=== PATIENT | female | born 1985 | race Caucasian/White ===

== ENCOUNTER 2016-06-30 11:45 | Observation (INO) | payer MEDICAID ==
[~2016-06-30] VITALS: Ht 162.6 cm; Wt 79.8 kg
[2016-06-30 11:52] VITALS: BP 143/104
[2016-06-30 12:02] VITALS: BP 123/76
[2016-06-30 12:34] VITALS: BP 134/81
[2016-06-30 13:12] LABS: BASOPHILS % (AUTO) 0 % (0-10); EOSINOPHILS % (AUTO) 0 % (0-10); LYMPHOCYTES # (AUTO) 2.1 X 10^3 (1.0-4.0); LYMPHOCYTES % (AUTO) 18 % (12-44); MEAN CORPUSCULAR HEMOGLOBIN 30 PG (25-34); MEAN CORPUSCULAR HGB CONC 34 G/DL (32-36); MEAN CORPUSCULAR VOLUME 88 FL (80-99); MEAN PLATELET VOLUME 9.7 FL (7.4-10.4); MONOCYTES # (AUTO) 0.6 X 10^3 (0.0-1.0); MONOCYTES % (AUTO) 5 % (0-12); NEUTROPHILS # (AUTO) 9.1 X 10^3 (1.8-7.8); NEUTROPHILS % (AUTO) 77 % (42-75); PLATELET COUNT 254 10^3/uL (130-400); RED BLOOD COUNT 3.88 10^6/uL (4.35-5.85); RED CELL DISTRIBUTION WIDTH 12.8 % (10.0-14.5); WHITE BLOOD COUNT 11.9 10^3/uL (4.3-11.0)
[2016-06-30 13:27] LABS: ALANINE AMINOTRANSFERASE 21 U/L (0-55); ALBUMIN 3.4 G/DL (3.2-4.5); ANION GAP 8 MMOL/L (5-14); ASPARTATE AMINO TRANSFERASE 16 U/L (5-34); BILIRUBIN,TOTAL 0.2 MG/DL (0.1-1.0); BLOOD UREA NITROGEN 6 MG/DL (7-18); BUN/CREATININE RATIO 9; CALCIUM 8.6 MG/DL (8.5-10.1); CARBON DIOXIDE 23 MMOL/L (21-32); CHLORIDE 107 MMOL/L (98-107); CREATININE SERUM 0.67 MG/DL (0.60-1.30); GFR ESTIMATED > 60; GLUCOSE 78 MG/DL (70-105); LACTATE DEHYDROGENASE 136 U/L (125-220); SODIUM 138 MMOL/L (135-145); TOTAL PROTEIN 6.5 G/DL (6.4-8.2); URIC ACID 3.4 MG/DL (2.6-7.2)
[2016-06-30 13:43] VITALS: BP 121/85
--- NOTE | 2016-06-30 14:59 | History & Physical-OB ---
OB - Chief Complaint & HPI Date Date of Admission: Date of Admission: Jun 30, 2016 at 11:50 Chief Complaint/History OB-Reason for Admission/Chief: Obstetrical Complication Hx : 3 Hx Para: 2 Expected Date of Delivery: Oct 23, 2016 Gestational Age in Weeks: 23 Gestational Age in Days: 4 Other reason for admission: 30 y/o @ 23w4d by 10 wk sono presenting from clinic for admission. At clinic today, BPs noted to be 140-160/80-90 on several measurements. Does c/o mild headache and vision changes. No severe RUQ pain or sudden increase in edema. Did not have pre-eclampsia or HTN in last pregnancies; none elevated prior to 20 wga. Does have significant situational stressors at home with a very sick nephew on a ventilator in [place] who she wishes to go visit. Growth today adequate and fluid normal. Denies other complaints, fetus active, no LOF VB CTX. c/b: H/o THC use (neg UDS on last visit) H/o chlamydia this (RODRIGO neg at 14wga) Declined genetic screening. History of Labs O+ Antibody neg RI Hep B neg RPR NR HIV neg Gonorrhea neg, chlamydia pos (neg RODRIGO) Allergies and Home Medications Allergies Coded Allergies: No Known Drug Allergies (Unverified , 06/30/16) OB - History Hx of Present Care: Yes Ultrasounds: Normal mid trimester US Obstetrical Complications: Other (THC use prior to , chlamydia this ) Medical Complications: None Information Induced Hypertension: No Maternal Gestational Diabetes: No Hemorrhage: No Obstetrical History Hx : 3 Hx Para: 2 Hx # Term Pregnancies: 2 Patient Past Medical History see above Social History/Family History Recent Infectious Disease Expo: No Sexually Transmitted Disease: Yes (chlamydia, treated as per above) OB - Admission Exam Physical Exam Vitals: Vital Signs 06/30/16 13:43 Temp 98.0 Pulse 78 Resp 18 B/P 121/85 Pulse Ox 100 O2 Delivery Room Air HEENT: NCAT Heart: Rhythm Normal Lungs: Clear Abdomen: Gravid Extremities: Normal Reflexes: Normal Labs Laboratory Tests Test 06/30/16 13:04 Range/Units Alanine Aminotransferase (ALT/SGPT) 21 0-55 U/L Albumin 3.4 3.2-4.5 G/DL Alkaline Phosphatase 79 40-136 U/L Anion Gap 8 5-14 MMOL/L Aspartate Amino Transf (AST/SGOT) 16 5-34 U/L BUN/Creatinine Ratio 9 Basophils # (Auto) 0.0 0.0-0.1 10^3/uL Basophils (%) (Auto) 0 0-10 % Blood Urea Nitrogen 6 L 7-18 MG/DL Calcium Level 8.6 8.5-10.1 MG/DL Carbon Dioxide Level 23 21-32 MMOL/L Chloride Level 107 98-107 MMOL/L Creatinine 0.67 0.60-1.30 MG/DL Eosinophils # (Auto) 0.0 0.0-0.3 10^3/uL Eosinophils (%) (Auto) 0 0-10 % Estimat Glomerular Filtration Rate > 60 Glucose Level 78 70-105 MG/DL Hematocrit 34 L 35-52 % Hemoglobin 11.8 11.5-16.0 G/DL Lactate Dehydrogenase 136 125-220 U/L Lymphocytes # (Auto) 2.1 1.0-4.0 X 10^3 Lymphocytes (%) (Auto) 18 12-44 % Mean Corpuscular Hemoglobin 30 25-34 PG Mean Corpuscular Hemoglobin Concent 34 32-36 G/DL Mean Corpuscular Volume 88 80-99 FL Mean Platelet Volume 9.7 7.4-10.4 FL Monocytes # (Auto) 0.6 0.0-1.0 X 10^3 Monocytes (%) (Auto) 5 0-12 % Neutrophils # (Auto) 9.1 H 1.8-7.8 X 10^3 Neutrophils (%) (Auto) 77 H 42-75 % Platelet Count 254 130-400 10^3/uL Potassium Level 4.0 3.6-5.0 MMOL/L Red Blood Count 3.88 L 4.35-5.85 10^6/uL Red Cell Distribution Width 12.8 10.0-14.5 % Sodium Level 138 135-145 MMOL/L Total Bilirubin 0.2 0.1-1.0 MG/DL Total Protein 6.5 6.4-8.2 G/DL Uric Acid 3.4 2.6-7.2 MG/DL White Blood Count 11.9 H 4.3-11.0 10^3/uL OB - Assessment/Plan/Diagnosis Plan Other Plan 30 y/o @ 23w4d with new onset hypertension, situational stress vs gest HTN vs pre-eclampsia. x 2 Rh+ RI H/o THC use prior to , has ceased, UDS neg since initial visit H/o chlamydia this , neg RODRIGO Admit to L&D for observation NST q shift Serial BPs 24 hour urine collection, HELLP labs reviewed and negative Will review urine prior to discussing disposition further KALEN LORD MD Jun 30, 2016 14:59
[2016-06-30] MEDS ORDERED: FLU TRIvalent (5 YOA+) 2016-17 (AFLURIA) 0.5 ML IM ONE (15:30)
[2016-06-30 16:46] VITALS: BP 126/80
[2016-06-30 20:15] VITALS: BP 132/84
[2016-07-01] VITALS: BP 128/83
[2016-07-01 04:25] VITALS: BP 116/78
[2016-07-01 08:30] VITALS: BP 127/79
--- NOTE | 2016-07-01 08:33 | Progress Note-Standard ---
Standard Progress Note Progress Notes/Assess & Plan Progress/Assessment & Plan BP much better in bed. Labs wnl. Will await results of the 24 hour urine and then discharge home with instructions. Complains of right leg pain. On further questioning. States it starts in back and radiates down posterior leg. No numbness. Will give tylenol and heating pad. May need PT as outpatient VS - Last 72 Hours, by Label 06/30/16 06/30/16 06/30/16 06/30/16 11:52 12:02 12:34 13:43 Temp 97.8 98.0 Pulse 93 85 86 78 Resp B/P 143/104 123/76 134/81 121/85 Pulse Ox 100 O2 Delivery Room Air 06/30/16 06/30/16 06/30/16 07/01/16 13:43 16:46 20:15 00:00 Temp 98.0 98.6 98.6 Pulse 78 78 75 83 Resp 18 B/P 121/85 126/80 132/84 128/83 Pulse Ox 100 97 O2 Delivery Room Air Room Air Room Air Room Air 07/01/16 04:25 Temp 98.3 Pulse 94 Resp 18 B/P 116/78 O2 Delivery Room Air Laboratory Tests Test 06/30/16 13:04 Range/Units Alanine Aminotransferase (ALT/SGPT) 21 0-55 U/L Albumin 3.4 3.2-4.5 G/DL Alkaline Phosphatase 79 40-136 U/L Anion Gap 8 5-14 MMOL/L Aspartate Amino Transf (AST/SGOT) 16 5-34 U/L BUN/Creatinine Ratio 9 Basophils # (Auto) 0.0 0.0-0.1 10^3/uL Basophils (%) (Auto) 0 0-10 % Blood Urea Nitrogen 6 L 7-18 MG/DL Calcium Level 8.6 8.5-10.1 MG/DL Carbon Dioxide Level 23 21-32 MMOL/L Chloride Level 107 98-107 MMOL/L Creatinine 0.67 0.60-1.30 MG/DL Eosinophils # (Auto) 0.0 0.0-0.3 10^3/uL Eosinophils (%) (Auto) 0 0-10 % Estimat Glomerular Filtration Rate > 60 Glucose Level 78 70-105 MG/DL Hematocrit 34 L 35-52 % Hemoglobin 11.8 11.5-16.0 G/DL Lactate Dehydrogenase 136 125-220 U/L Lymphocytes # (Auto) 2.1 1.0-4.0 X 10^3 Lymphocytes (%) (Auto) 18 12-44 % Mean Corpuscular Hemoglobin 30 25-34 PG Mean Corpuscular Hemoglobin Concent 34 32-36 G/DL Mean Corpuscular Volume 88 80-99 FL Mean Platelet Volume 9.7 7.4-10.4 FL Monocytes # (Auto) 0.6 0.0-1.0 X 10^3 Monocytes (%) (Auto) 5 0-12 % Neutrophils # (Auto) 9.1 H 1.8-7.8 X 10^3 Neutrophils (%) (Auto) 77 H 42-75 % Platelet Count 254 130-400 10^3/uL Potassium Level 4.0 3.6-5.0 MMOL/L Red Blood Count 3.88 L 4.35-5.85 10^6/uL Red Cell Distribution Width 12.8 10.0-14.5 % Sodium Level 138 135-145 MMOL/L Total Bilirubin 0.2 0.1-1.0 MG/DL Total Protein 6.5 6.4-8.2 G/DL Uric Acid 3.4 2.6-7.2 MG/DL White Blood Count 11.9 H 4.3-11.0 10^3/uL assessment: 1. elevated blood pressures with new onset proteinuria at 23 weeks. 2. right sciatic pain. SRINATH VARGAS DO Jul 01, 2016 08:33
[2016-07-01] MEDS ORDERED: ACETAMINOPHEN 500 MG TAB (TYLENOL) PO PRN (09:00)
[2016-07-01 11:55] VITALS: BP 127/80
[2016-07-01 13:06] VITALS: BP 127/80
[2016-07-01] MEDS ORDERED: CYCLOBENZAPRINE 10 MG (FLEXERIL) TAB PO PRN (13:15)
[2016-07-01] MEDS ORDERED: CYCL10TA9 PO (13:22)
--- NOTE | 2016-07-01 13:24 | Discharge Inst-Women's Service ---
Discharge Inst-Women's Serv Depart Medication/Instructions New, Converted or Re-Newed RX: RX on Chart Instructions follow up with Dr. Lerner next week. Call for SBD > 160 and DBP > 110 Final Diagnosis elevated blood pressure , second trimester right sciatic nerve pain headache, history of migraine headaches. Consults/Follow Up Additional Follow Up: Yes (1 weeks with Eduarda) Activity Activity: Activity as Tolerated Driving Instructions: You May Drive NO SMOKING: NO SMOKING Nothing Inside Vagina: No Douching, No [place], No Tampons Diet Discharge Diet: No Restrictions Symptoms to Report to : Eyesight Changes, Pain Increased, Fever Over 101 Degrees F, Cramps in Feet or Legs, Vaginal Discharge Foul For Any Problems or Questions: Contact Your Physician SRINATH VARGAS DO Jul 01, 2016 13:24
[2016-07-01] MEDS ORDERED: CYCLOBENZAPRINE 10 MG (FLEXERIL) TAB PO SCH (13:30)
--- NOTE | 2016-07-01 14:47 | Progress Note-Standard ---
Standard Progress Note Progress Notes/Assess & Plan Progress/Assessment & Plan Vital Signs 07/01/16 11:55 Temp 98.0 Pulse 77 Resp 18 B/P 127/80 Pulse Ox 99 O2 Delivery Room Air Will discharge home with close follow up. Follow up with Dr. Lerner next week Laboratory Tests Test 07/01/16 13:41 Range/Units Urine Total Protein 24 Hour 0-149 MG/24H Urine Total Protein mg/dL < 6 L 6-12 MG/DL Urine Total Volume 2600 ML SRINATH VARGAS DO Jul 01, 2016 14:46
[2016-07-01] MEDS ORDERED: PREN1TAB86 PO (15:13)
[2016-07-01 15:40] VITALS: BP 127/80
== END 2016-07-01 14:44 | disposition home or self-care (01) ==
LOC: LDRP 11:45 → UNDOADMOB 11:50 → LDRP 11:50 → UNDODISOB 07-01 15:40
PROVIDERS: ADMIT Obstetrics & Gynecology; ATTEND Obstetrics & Gynecology
DX: O13.2 Gestational [pregnancy-induced] hypertension without significant proteinuria, second trimester (principal); O26.892 Other specified pregnancy related conditions, second trimester; M54.31 Sciatica, right side; R51 Headache; Z3A.23 23 weeks gestation of pregnancy
CPT/HCPCS: 36415; 80053; 83615; 84156; 84550; 85025; 99211; G0378

== ENCOUNTER 2016-08-04 14:12 | Outpatient (CLI) | payer MEDICAID ==
[~2016-08-04] VITALS: Ht 162.6 cm; Wt 82.1 kg
[2016-08-04 14:10] VITALS: BP 134/78
[~2016-08-04 14:12] MED LIST: CYCL10TA9 PO; PREN1TAB86 PO
[2016-08-04 15:30] VITALS: BP 134/78
[2016-08-04] MEDS ORDERED: FLU TRIvalent (5 YOA+) 2016-17 (AFLURIA) 0.5 ML IM ONE (15:45)
[2016-08-04 15:50] VITALS: BP 125/72
--- NOTE | 2016-08-05 14:07 | Physician Query-Final Dx ---
REAGAN SÁNCHEZ 08/05/16 1407: Clinic Account Progress/Dx Physician Query: Please give diagnosis Date of Service Aug 04, 2016 at 14:12 JACKIE DANIELS MD 08/05/16 1650: Clinic Account Progress/Dx DIAGNOSIS: Diagnosis fall / trauma during REAGAN SÁNCHEZ Aug 05, 2016 14:07 JACKIE DANIELS MD Aug 05, 2016 16:50
== END 2016-08-04 15:55 | disposition home or self-care (01) ==
LOC: DELPENDDIS → LDRP 14:12 → WSo 14:12
PROVIDERS: ATTEND Obstetrics & Gynecology
DX: O26.93 Pregnancy related conditions, unspecified, third trimester (principal); R10.32 Left lower quadrant pain; W19.XXXA Unspecified fall, initial encounter; Y92.018 Other place in single-family (private) house as the place of occurrence of the external cause; Y99.8 Other external cause status; Z3A.28 28 weeks gestation of pregnancy
CPT/HCPCS: 99213

== ENCOUNTER 2016-10-28 20:00 | Inpatient (IN) | payer MEDICAID ==
[~2016-10-28] VITALS: Ht 162.6 cm; Wt 85.7 kg
[2016-10-28] MEDS: D5 LR IV SOLUTION 1,000 ML IV SCH (20:10)
[2016-10-28] MEDS: LACTATED RINGERS 1,000 ML IV SCH (20:15)
[2016-10-28 20:33] VITALS: BP 140/88
[2016-10-28] MEDS ORDERED: LACTATED RINGERS 1,000 ML IV ONE (20:34)
[2016-10-28] MEDS ORDERED: MISOPROSTOL 100 MCG (CYTOTEC) TAB PV PRN (21:30)
[2016-10-28] MEDS ORDERED: MINERAL OIL CONCENTRATE 99.9% 15 ML UDC TOP PRN (21:30)
[2016-10-28 21:40] VITALS: BP 142/97
[2016-10-28 21:42] LABS: BASOPHILS % (AUTO) 0 % (0-10); EOSINOPHILS % (AUTO) 0 % (0-10); LYMPHOCYTES # (AUTO) 2.1 X 10^3 (1.0-4.0); LYMPHOCYTES % (AUTO) 15 % (12-44); MEAN CORPUSCULAR HEMOGLOBIN 27 PG (25-34); MEAN CORPUSCULAR HGB CONC 32 G/DL (32-36); MEAN CORPUSCULAR VOLUME 84 FL (80-99); MEAN PLATELET VOLUME 10.7 FL (7.4-10.4); MONOCYTES % (AUTO) 7 % (0-12); NEUTROPHILS # (AUTO) 10.5 X 10^3 (1.8-7.8); NEUTROPHILS % (AUTO) 77 % (42-75); PLATELET COUNT 209 10^3/uL (130-400); RED BLOOD COUNT 4.02 10^6/uL (4.35-5.85); WHITE BLOOD COUNT 13.7 10^3/uL (4.3-11.0)
[2016-10-28 21:44] LABS: BILIRUBIN,URINE NEGATIVE (NEGATIVE); KETONES,URINE NEGATIVE (NEGATIVE); LEUKOCYTE ESTERASE ,URINE 1+ (NEGATIVE); NITRITE,URINE NEGATIVE (NEGATIVE); PH,URINE 6.5 (5-9); PROTEIN,URINE 1+ (NEGATIVE); UROBILINOGEN,URINE 1 MG/DL (NORMAL)
[2016-10-28 21:58] LABS: WBC,URINE 0-2 /HPF
[2016-10-28 22:10] VITALS: BP 131/84
[2016-10-28] MEDS: CATHETER FLUSH 10 ML SYR IV SCH (22:27)
[2016-10-28] MEDS: fentaNYL INJECTION 100 MCG/2 ML AMP IVP PRN (22:27)
[2016-10-28 23:06] VITALS: BP 138/103
[2016-10-29] VITALS (44 sets, daily range): BP systolic 108–160; BP diastolic 61–111
[2016-10-29] MEDS: fentaNYL INJECTION 100 MCG/2 ML AMP IVP PRN ×5 (01:19→05:18)
[2016-10-29 01:51] LABS: ALANINE AMINOTRANSFERASE 13 U/L (0-55); ALBUMIN 3.2 GM/DL (3.2-4.5); ANION GAP 11 MMOL/L (5-14); ASPARTATE AMINO TRANSFERASE 18 U/L (5-34); BILIRUBIN,TOTAL 0.4 MG/DL (0.1-1.0); BLOOD UREA NITROGEN 8 MG/DL (7-18); BUN/CREATININE RATIO 10 (0-20); CARBON DIOXIDE 20 MMOL/L (21-32); CHLORIDE 105 MMOL/L (98-107); CREATININE SERUM 0.79 MG/DL (0.60-1.30); GFR ESTIMATED > 60; GLUCOSE 101 MG/DL (70-105); HEMOLYSIS 6 (-100-29); ICTERUS 0.6 (-100-1.9); LACTATE DEHYDROGENASE 204 U/L (125-220); LIPEMIA 20 (-100-49); POTASSIUM 3.8 MMOL/L (3.6-5.0); SODIUM 136 MMOL/L (135-145); TOTAL PROTEIN 6.2 GM/DL (6.4-8.2); URIC ACID 4.3 MG/DL (2.6-7.2)
[2016-10-29] MEDS ORDERED: fentaNYL INJECTION 100 MCG/2 ML AMP ONE ×3 (02:14→07:19)
[2016-10-29] MEDS: D5 LR IV SOLUTION 1,000 ML IV SCH ×2 (05:23→11:16)
[2016-10-29] MEDS: CATHETER FLUSH 10 ML SYR IV SCH ×3 (06:13→22:27)
[2016-10-29] MEDS ORDERED: fentaNYL INJECTION 100 MCG/2 ML AMP IVP PRN (06:30)
[2016-10-29] MEDS: LACTATED RINGERS 1,000 ML IV SCH (06:51)
[2016-10-29] MEDS ORDERED: SUFENTA 0.6MCG/ML BUPIVA 0.125 100 ML ONE (06:52)
[2016-10-29] MEDS ORDERED: LIDOCAINE PF 2% 5 ML (XYLOCAINE) VIAL ONE (07:19)
[2016-10-29] MEDS ORDERED: BUPIVACAINE 0.25% 30 ML (SENSORCAINE) VIAL ONE (07:19)
[2016-10-29] MEDS ORDERED: LACTATED RINGERS 1,000 ML IV ONE ×2 (07:50)
[2016-10-29] MEDS ORDERED: ONDANSETRON 4 MG/2 ML (SDV) Z0FRAN IV PRN (08:00)
[2016-10-29] MEDS ORDERED: BUPIVACAINE 0.25% 30 ML (SENSORCAINE) VIAL INJ ONE (08:00)
[2016-10-29] MEDS ORDERED: EPIDURAL (SUFENTA 0.6MCG/ML BUPIVA 0.125%) 100 ML BAG EPI PRN (08:00)
[2016-10-29] MEDS ORDERED: fentaNYL INJECTION 100 MCG/2 ML AMP INJ ONE (08:00)
[2016-10-29] MEDS ORDERED: LIDOCAINE PF 2% 10 ML (XYLOCAINE) AMP INJ ONE (08:00)
[2016-10-29] MEDS ORDERED: NALOXONE 0.4 MG/ML 1 ML (NARCAN) VIAL IV PRN (08:00)
--- NOTE | 2016-10-29 08:31 | History & Physical-OB ---
OB - Chief Complaint & HPI Date/Time Date of Admission: Date of Admission: Oct 28, 2016 at 20:00 Time Seen by Provider: 07:55 Chief Complaint/History OB-Reason for Admission/Chief: Induction of Labor Hx : 3 Hx Para: 2 Expected Date of Delivery: Oct 23, 2016 Gestational Age in Weeks: 40 Gestational Age in Days: 6 Indication for induction: post dates Other reason for admission: 31 y/o @ 40w6d here for elective IOL (post-dates but not post-term) Upon my arrival, had just gotten epidural, SROM this AM with clear fluid Fetus active, CTX q2-3 mins No si/sx pre-eclampsia c/b: H/o THC use (neg UDS throughout other than intake) H/o chlamydia this (neg RODRIGO) Declined genetic screening HTN in second trimester (one episode r/t of family member, no pre- eclampsia, no repeat elevated BPs) History of Labs O+ Antibody neg RI Hep B neg Hep C neg RPR NR HIV Neg Gonorrhea neg Chlamydia pos first trimester, neg RODRIGO and neg rescreen in third trimester GBS Neg Allergies and Home Medications Allergies Coded Allergies: No Known Drug Allergies (Unverified , 06/30/16) Home Medications Vit W-Ca,Fe,FA(<1 mg) 1 Each Tablet, 1 EACH PO DAILY, (Reported) OB - History Hx of Present Care: Yes Ultrasounds: Normal mid trimester US Obstetrical Complications: None Medical Complications: None Information Induced Hypertension: No Maternal Gestational Diabetes: No Hemorrhage: No Obstetrical History Hx : 3 Hx Para: 2 Patient Past Medical History see above Social History/Family History Recent Infectious Disease Expo: No Sexually Transmitted Disease: Yes (chlamydia, treated as per above) Alcohol Use: Denies Use Recreational Drug Use: Yes Immunizations Tetanus Booster (TDap): Less than 5yrs Rubella: immune RPR/VDRL: Negative GBS Status: Negative HBsAG: Negative OB - Admission Exam Physical Exam Time Seen by Provider: 07:55 Vitals: Vital Signs 10/28/16 10/29/16 10/29/16 21:40 05:32 06:23 Temp 98.8 Pulse 61 Resp 18 B/P (MAP) 136/85 O2 Delivery Room Air HEENT: NCAT Abdomen: Gravid Cervical Dilatation: 4cm Effacement: 75% Station: -1 Membranes: Ruptured Amniotic Fluid: Clear Heart Rate: 130's Accelerations: Accelerations Present Decelerations: Variable Decelerations (with occ ctx, anne marie > 100, lasting < 30 seconds) Short Term Variability: Present Transmission Technician Variability: Average (6-25) Contractions on Admission: < 5 Minutes Apart Earl Scoring Tool (Modified) Dilation (cm): 3-4cm (2) Effacement (%): 80-100% (3) Descent/Station: -1,0 (2) Cervix Consistency: Soft (2) Cervix Position: Anterior (2) Add 1 point for: Each previous vaginal delivery (1) Subtract 1 point for: Postdate (-1) Earl Score: 12 Labs Laboratory Tests Test 10/28/16 20:05 10/28/16 20:45 Range/Units Urine Color YELLOW Urine Clarity CLEAR Urine pH 6.5 5-9 Urine Specific [place] 1.020 1.016-1.022 Urine Protein 1+ H NEGATIVE Urine Glucose (UA) NEGATIVE NEGATIVE Urine Ketones NEGATIVE NEGATIVE Urine Nitrite NEGATIVE NEGATIVE Urine Bilirubin NEGATIVE NEGATIVE Urine Urobilinogen 1 NORMAL MG/DL Urine Leukocyte Esterase 1+ H NEGATIVE Urine RBC (Auto) NEGATIVE NEGATIVE Urine RBC NONE /HPF Urine WBC 0-2 /HPF Urine Squamous Epithelial Cells 5-10 /HPF Urine Crystals NONE /LPF Urine Bacteria TRACE /HPF Urine Casts NONE /LPF Urine Mucus NEGATIVE /LPF Urine Culture Indicated NO White Blood Count 13.7 H 4.3-11.0 10^3/uL Red Blood Count 4.02 L 4.35-5.85 10^6/uL Hemoglobin 10.9 L 11.5-16.0 G/DL Hematocrit 34 L 35-52 % Mean Corpuscular Volume 84 80-99 FL Mean Corpuscular Hemoglobin 27 25-34 PG Mean Corpuscular Hemoglobin Concent 32 32-36 G/DL Red Cell Distribution Width 13.0 10.0-14.5 % Platelet Count 209 130-400 10^3/uL Mean Platelet Volume 10.7 H 7.4-10.4 FL Neutrophils (%) (Auto) 77 H 42-75 % Lymphocytes (%) (Auto) 15 12-44 % Monocytes (%) (Auto) 7 0-12 % Eosinophils (%) (Auto) 0 0-10 % Basophils (%) (Auto) 0 0-10 % Neutrophils # (Auto) 10.5 H 1.8-7.8 X 10^3 Lymphocytes # (Auto) 2.1 1.0-4.0 X 10^3 Monocytes # (Auto) 1.0 0.0-1.0 X 10^3 Eosinophils # (Auto) 0.0 0.0-0.3 10^3/uL Basophils # (Auto) 0.0 0.0-0.1 10^3/uL Sodium Level 136 135-145 MMOL/L Potassium Level 3.8 3.6-5.0 MMOL/L Chloride Level 105 98-107 MMOL/L Carbon Dioxide Level 20 L 21-32 MMOL/L Anion Gap 11 5-14 MMOL/L Blood Urea Nitrogen 8 7-18 MG/DL Creatinine 0.79 0.60-1.30 MG/DL Estimat Glomerular Filtration Rate > 60 BUN/Creatinine Ratio 10 0-20 Glucose Level 101 70-105 MG/DL Uric Acid 4.3 2.6-7.2 MG/DL Calcium Level 9.0 8.5-10.1 MG/DL Total Bilirubin 0.4 0.1-1.0 MG/DL Aspartate Amino Transf (AST/SGOT) 18 5-34 U/L Alanine Aminotransferase (ALT/SGPT) 13 0-55 U/L Alkaline Phosphatase 150 H 40-136 U/L Lactate Dehydrogenase 204 125-220 U/L Total Protein 6.2 L 6.4-8.2 GM/DL Albumin 3.2 3.2-4.5 GM/DL OB - Assessment/Plan/Diagnosis Assessment Assessment: induction of labor Plan Other Plan 31 y/o @ 40w6d with elective IOL GBS neg Rh+ RI H/o chlamydia this with neg RODRIGO and neg rescreen in third trimester H/o THC use with +UDS on OB intake but negative since H/o HTN in second trimester, resolved, no dx of gest HTN Elevated BPs in labor HELLP labs unremarkable but 1+ protein - will dx with mild pre-eclampsia. No mag sulfate unless treatable BPs or other severe si/sx. Will need one week BP check for f/u however. S/p cytotec x 1 dose overnight, no additional augmentation since - will continue to observe labor process and start pitocin if necessary ASVD KALEN LORD MD Oct 29, 2016 08:31
[2016-10-29] MEDS ORDERED: OXYTOCIN/NORMAL SALINE 500 ML IV ONE (10:01)
[2016-10-29] MEDS: OXYTOCIN/NORMAL SALINE 500 ML IV SCH ×2 (12:30→13:18)
[2016-10-29] MEDS ORDERED: IBUP-1773 PO (12:40)
[2016-10-29] MEDS ORDERED: DOCU-143 PO (12:40)
[2016-10-29] MEDS ORDERED: FERR-84 PO (12:40)
--- NOTE | 2016-10-29 12:41 | Discharge Inst-Women's Service ---
Discharge Inst-Women's Serv Depart Medication/Instructions New, Converted or Re-Newed RX: RX on Chart Final Diagnosis TIUP, Consults/Follow Up Additional Follow Up: Yes Orders/Referrals One week for nurse visit only with BP check [address] Lerner Activity Activity: Activity as Tolerated Driving Instructions: You May Drive NO SMOKING: NO SMOKING Nothing Inside Vagina: No Douching, No [place], No Tampons Diet Discharge Diet: No Restrictions Symptoms to Report to : Bleeding Excessive, Pain Increased, Fever Over 101 Degrees F, Pain/Pressure in Chest, Vaginal Bleeding Increase, Dizziness/Fainting , Nausea/Vomiting, Shortness of Breath For Any Problems or Questions: Contact Your Physician, Go to Emergency Room KALEN LERNER MD Oct 29, 2016 12:41
--- NOTE | 2016-10-29 12:45 | OB Labor & Delivery Record ---
Vag Delivery Note Vag Delivery Note Date of Delivery: 10/29/16 Preoperative Diagnosis: Tracy Lemus is a 31 y/o @ 40w6d with IOL for post-dates , GBS neg Postoperative Diagnosis: Same Surgeon: Kalen Lernre MD Anesthesia: Epidural Delivery Type: Spontaneous vaginal delivery Findings: Viable male , apgars 8/9, weight 8lb3oz Lacerations: none Intact placenta with 3 vessel cord. No nuchal cord, body cord or shoulder dystocia Estimated Blood Loss: 300 ml Complications: None Condition: Stable Description of Procedure: The patient is a 31 y/o @ 40w6d who presented for scheduled IOL. She was admitted and informed consent was obtained. Her labor course was remarkable for cytotec for IOL with SROM of clear fluid and epidural for analgesia. Without further augmentation, she progressed to complete dilatation and began to push. She was then set up for delivery. The 's head was delivered atraumatically in the occiput anterior position. The shoulders and remainder of the 's body were then delivered without difficulty. Upon delivery, the head was held below the level of the perineum and the mouth and nares were bulb suctioned. The cord was doubly clamped and cut after a pause of 30-60 seconds after the infant was placed on his mother's chest. An intact placenta with 3- vessel cord delivered via Shani and there was found to be minimal bleeding. Vigorous fundal massage was performed and the fundus was found to be firm. IV oxytocin was given. Examination of the vagina and perineum revealed no lacerations. Sponge, instrument and needle counts were correct. Mom and baby were both in stable condition in the labor suite. Vitals - Labs Vital Signs - I&O Vital Signs Date Time Temp Pulse Resp B/P (MAP) Pulse Ox O2 Delivery O2 Flow Rate FiO2 10/29/16 11:20 81 18 146/85 Room Air 10/29/16 11:05 89 18 128/78 Room Air 10/29/16 10:50 82 18 133/84 Room Air 10/29/16 10:35 83 18 127/77 Room Air 10/29/16 10:20 69 18 139/80 Room Air 10/29/16 10:05 73 18 128/78 Room Air 10/29/16 09:50 72 18 132/74 Room Air 10/29/16 09:45 Room Air 10/29/16 09:35 98.6 10/29/16 09:30 Non Rebreather 15.00 10/29/16 09:20 71 18 118/72 Non Rebreather 15.00 10/29/16 09:15 Non Rebreather 15.00 10/29/16 09:00 64 18 110/61 Room Air 10/29/16 08:50 82 122/78 10/29/16 08:45 99 18 124/80 96 Room Air 10/29/16 08:40 72 116/75 96 Room Air 10/29/16 08:35 65 121/75 96 Room Air 10/29/16 08:30 94 18 108/71 96 Room Air 10/29/16 08:25 69 118/74 95 Room Air 10/29/16 08:15 112 18 130/73 98 Room Air 10/29/16 08:12 65 134/77 Room Air 10/29/16 08:10 62 133/73 91 Room Air 10/29/16 08:05 98.7 10/29/16 08:05 78 145/89 97 Room Air 10/29/16 08:02 65 123/81 88 Room Air 10/29/16 08:00 63 18 Room Air 10/29/16 07:58 62 135/81 100 Room Air 10/29/16 07:55 75 121/61 100 Room Air 10/29/16 07:48 62 140/96 91 Room Air 10/29/16 07:45 62 18 130/89 98 Room Air 10/29/16 07:40 67 143/90 92 Room Air 10/29/16 07:35 92 140/100 98 Room Air 10/29/16 07:30 76 18 146/111 98 Room Air 10/29/16 06:23 61 18 136/85 10/29/16 05:32 98.8 73 18 127/87 10/29/16 03:20 77 18 131/76 10/29/16 02:10 69 18 140/91 10/29/16 01:20 98.7 82 18 160/90 10/29/16 00:39 69 18 122/75 10/29/16 00:12 98.2 71 18 136/96 10/28/16 23:06 97.9 69 18 138/103 6/20/17 22:10 78 18 131/84 10/28/16 21:40 98.3 85 20 142/97 Room Air 10/28/16 20:33 99.5 106 18 140/88 Room Air I & O 10/29/16 07:00 Intake Total 3000 ml Balance 3000 ml Labs Laboratory Tests 10/28/16 20:05: Urine Color YELLOW, Urine Clarity CLEAR, Urine pH 6.5, Urine Specific [place] 1.020, Urine Protein 1+H, Urine Glucose (UA) NEGATIVE, Urine Ketones NEGATIVE, Urine Nitrite NEGATIVE, Urine Bilirubin NEGATIVE, Urine Urobilinogen 1, Urine Leukocyte Esterase 1+H, Urine RBC (Auto) NEGATIVE, Urine RBC NONE, Urine WBC 0-2 , Urine Squamous Epithelial Cells 5-10, Urine Crystals NONE, Urine Bacteria TRACE, Urine Casts NONE, Urine Mucus NEGATIVE, Urine Culture Indicated NO 10/28/16 20:45: White Blood Count 13.7H, Red Blood Count 4.02L, Hemoglobin 10.9L, Hematocrit 34L , Mean Corpuscular Volume 84, Mean Corpuscular Hemoglobin 27, Mean Corpuscular Hemoglobin Concent 32, Red Cell Distribution Width 13.0, Platelet Count 209, Mean Platelet Volume 10.7H, Neutrophils (%) (Auto) 77H, Lymphocytes (%) (Auto) 15, Monocytes (%) (Auto) 7, Eosinophils (%) (Auto) 0, Basophils (%) (Auto) 0, Neutrophils # (Auto) 10.5H, Lymphocytes # (Auto) 2.1, Monocytes # (Auto) 1.0, Eosinophils # (Auto) 0.0, Basophils # (Auto) 0.0, Sodium Level 136, Potassium Level 3.8, Chloride Level 105, Carbon Dioxide Level 20L, Anion Gap 11, Blood Urea Nitrogen 8, Creatinine 0.79, Estimat Glomerular Filtration Rate > 60, BUN/ Creatinine Ratio 10, Glucose Level 101, Uric Acid 4.3, Calcium Level 9.0, Total Bilirubin 0.4, Aspartate Amino Transf (AST/SGOT) 18, Alanine Aminotransferase ( ALT/SGPT) 13, Alkaline Phosphatase 150H, Lactate Dehydrogenase 204, Total Protein 6.2L, Albumin 3.2 KALEN LERNER MD Oct 29, 2016 12:45
[2016-10-29] MEDS ORDERED: IBUPROFEN 600 MG (MOTRIN) TAB PO ONE (13:04)
[2016-10-29] MEDS: IBUPROFEN 600 MG (MOTRIN) TAB PO SCH ×2 (13:14→18:20)
[2016-10-29] MEDS ORDERED: WITCH HAZEL(TUCKS) 40 EA JAR TOP PRN (13:15)
[2016-10-29] MEDS ORDERED: BENZOCAINE/MENTHOL (DERMOPLAST) 56 ML CAN TP PRN (13:15)
[2016-10-29] MEDS ORDERED: BUTORPHANOL INJ 2 MG/ML (STADOL) VIAL IV PRN (14:45)
[2016-10-29] MEDS: FERROUS SULF 325 MG (IRON) TAB PO SCH (18:20)
[2016-10-29] MEDS: DOCUSATE SODIUM 100 MG (COLACE) CAP PO SCH (20:13)
[2016-10-29] MEDS: HYDROcodone/APAP 5 MG/325 MG (LORTAB) TAB PO PRN (20:14)
[2016-10-30] MEDS: IBUPROFEN 600 MG (MOTRIN) TAB PO SCH ×4 (00:03→18:18)
[2016-10-30 00:10] VITALS: BP 120/78
[2016-10-30 04:04] VITALS: BP 129/85
[2016-10-30] MEDS: CATHETER FLUSH 10 ML SYR IV SCH (06:35)
[2016-10-30 07:26] LABS: BASOPHILS % (AUTO) 0 % (0-10); EOSINOPHILS # (AUTO) 0.1 10^3/uL (0.0-0.3); EOSINOPHILS % (AUTO) 1 % (0-10); LYMPHOCYTES # (AUTO) 2.7 X 10^3 (1.0-4.0); LYMPHOCYTES % (AUTO) 19 % (12-44); MEAN CORPUSCULAR HEMOGLOBIN 27 PG (25-34); MEAN CORPUSCULAR HGB CONC 31 G/DL (32-36); MEAN CORPUSCULAR VOLUME 85 FL (80-99); MEAN PLATELET VOLUME 10.5 FL (7.4-10.4); MONOCYTES # (AUTO) 0.7 X 10^3 (0.0-1.0); MONOCYTES % (AUTO) 5 % (0-12); NEUTROPHILS # (AUTO) 10.8 X 10^3 (1.8-7.8); NEUTROPHILS % (AUTO) 76 % (42-75); PLATELET COUNT 199 10^3/uL (130-400); RED BLOOD COUNT 3.94 10^6/uL (4.35-5.85); WHITE BLOOD COUNT 14.3 10^3/uL (4.3-11.0)
--- NOTE | 2016-10-30 07:47 | Progress Note-Standard ---
Standard Progress Note Progress Notes/Assess & Plan Date Seen by Provider: Oct 31, 2016 Time Seen by Provider: 07:30 Progress/Assessment & Plan Patient doing well this morning having severe cramps, improved with lortab. Ambulating and voiding freely. Vital Sign - Last 24 Hours 10/29/16 10/29/16 10/29/16 10/29/16 07:48 07:55 07:58 08:00 Pulse 62 75 62 63 Resp 18 B/P (MAP) 140/96 121/61 135/81 Pulse Ox 91 100 100 O2 Delivery Room Air Room Air Room Air Room Air 10/29/16 10/29/16 10/29/16 10/29/16 08:02 08:05 08:05 08:10 Temp 98.7 Pulse 65 78 62 B/P (MAP) 123/81 145/89 133/73 Pulse Ox 88 97 91 O2 Delivery Room Air Room Air Room Air 10/29/16 10/29/16 10/29/16 10/29/16 08:12 08:15 08:25 08:30 Pulse 65 112 69 94 Resp 18 18 B/P (MAP) 134/77 130/73 118/74 108/71 Pulse Ox 98 95 96 O2 Delivery Room Air Room Air Room Air Room Air 10/29/16 10/29/16 10/29/16 10/29/16 08:35 08:40 08:45 08:50 Pulse 65 72 99 82 Resp 18 B/P (MAP) 121/75 116/75 124/80 122/78 Pulse Ox 96 96 96 O2 Delivery Room Air Room Air Room Air 10/29/16 10/29/16 10/29/16 10/29/16 09:00 09:15 09:20 09:30 Pulse 64 71 Resp 18 18 B/P (MAP) 110/61 118/72 O2 Delivery Room Air Non Rebreather Non Rebreather Non Rebreather O2 Flow Rate 15.00 15.00 15.00 10/29/16 10/29/16 10/29/16 10/29/16 09:35 09:45 09:50 10:05 Temp 98.6 Pulse 72 73 Resp 18 18 B/P (MAP) 132/74 128/78 O2 Delivery Room Air Room Air Room Air 10/29/16 10/29/16 10/29/16 10/29/16 10:20 10:35 10:50 11:05 Pulse 69 83 82 89 Resp 18 18 18 18 B/P (MAP) 139/80 127/77 133/84 128/78 O2 Delivery Room Air Room Air Room Air Room Air 10/29/16 10/29/16 10/29/16 10/29/16 11:20 11:35 11:50 12:38 Temp 99.3 100.4 Pulse 81 85 74 105 Resp 18 18 18 18 B/P (MAP) 146/85 144/92 135/86 132/69 O2 Delivery Room Air Room Air Room Air Room Air 10/29/16 10/29/16 10/29/16 10/29/16 12:51 13:04 13:19 13:35 Temp 99.4 99.8 Pulse 83 84 74 74 Resp 18 18 18 18 B/P (MAP) 138/88 141/83 120/73 133/78 O2 Delivery Room Air Room Air Room Air Room Air 10/29/16 10/29/16 10/29/16 10/30/16 13:50 16:32 20:00 00:10 Temp 99.7 98.7 98.2 97.8 Pulse 61 63 86 69 Resp 18 18 17 18 B/P (MAP) 129/83 119/82 130/87 120/78 Pulse Ox 100 95 97 O2 Delivery Room Air Room Air Room Air Room Air 10/30/16 04:04 Temp 97.6 Pulse 81 Resp 19 B/P (MAP) 129/85 Pulse Ox 95 O2 Delivery Room Air Intake and Output 10/29/16 10/29/16 10/30/16 15:00 23:00 07:00 Intake Total 3000 ml Balance 3000 ml Laboratory Tests Test 10/30/16 06:44 Range/Units White Blood Count 14.3 H 4.3-11.0 10^3/uL Red Blood Count 3.94 L 4.35-5.85 10^6/uL Hemoglobin 10.5 L 11.5-16.0 G/DL Hematocrit 34 L 35-52 % Mean Corpuscular Volume 85 80-99 FL Mean Corpuscular Hemoglobin 27 25-34 PG Mean Corpuscular Hemoglobin Concent 31 L 32-36 G/DL Red Cell Distribution Width 13.0 10.0-14.5 % Platelet Count 199 130-400 10^3/uL Mean Platelet Volume 10.5 H 7.4-10.4 FL Neutrophils (%) (Auto) 76 H 42-75 % Lymphocytes (%) (Auto) 19 12-44 % Monocytes (%) (Auto) 5 0-12 % Eosinophils (%) (Auto) 1 0-10 % Basophils (%) (Auto) 0 0-10 % Neutrophils # (Auto) 10.8 H 1.8-7.8 X 10^3 Lymphocytes # (Auto) 2.7 1.0-4.0 X 10^3 Monocytes # (Auto) 0.7 0.0-1.0 X 10^3 Eosinophils # (Auto) 0.1 0.0-0.3 10^3/uL Basophils # (Auto) 0.0 0.0-0.1 10^3/uL Uterine fundus firm and palpated below umbilius Diagnosis: PPD 1 NVD Mild PreE - BP stable Acute blood loss anemia superimposed on anemia of P: Continue routine PP care Anticipate dc later today or tomorrow morning pending BP control, and infant release. ANASTACIO VANESSA DO Oct 30, 2016 7:47 am
[2016-10-30 08:53] VITALS: BP 133/83
[2016-10-30] MEDS: HYDROcodone/APAP 5 MG/325 MG (LORTAB) TAB PO PRN ×2 (09:02→20:31)
[2016-10-30] MEDS: FERROUS SULF 325 MG (IRON) TAB PO SCH ×2 (09:02→18:18)
[2016-10-30] MEDS: DOCUSATE SODIUM 100 MG (COLACE) CAP PO SCH ×2 (09:02→20:31)
[2016-10-30] MEDS: PRENATAL VITAMIN 1 EA TAB PO SCH (09:02)
[2016-10-30 11:27] VITALS: BP 120/79
--- NOTE | 2016-10-30 14:53 | Anesthesia-Regional Post-Op ---
Regional Patient Condition Mental Status: Alert, Oriented x3 Circulation: Same as Pre-Op Headache: Absent Sensation: Full Recovery Motor Block: Absent Post Op Complications Complications None Follow Up Care/Instructions Patient Instructions None needed. Anesthesia/Patient Condition No complications reported per nursing. SUSANNA CAMACHO CRNA Oct 30, 2016 14:53
[2016-10-30 20:30] VITALS: BP 136/85
[2016-10-31] MEDS: IBUPROFEN 600 MG (MOTRIN) TAB PO SCH ×3 (00:04→13:11)
[2016-10-31 00:05] VITALS: BP 140/92
[2016-10-31] MEDS: HYDROcodone/APAP 5 MG/325 MG (LORTAB) TAB PO PRN (00:31)
[2016-10-31 06:35] VITALS: BP 106/70
[2016-10-31] MEDS: DOCUSATE SODIUM 100 MG (COLACE) CAP PO SCH (09:00)
[2016-10-31] MEDS: FERROUS SULF 325 MG (IRON) TAB PO SCH (09:00)
[2016-10-31] MEDS: PRENATAL VITAMIN 1 EA TAB PO SCH (09:00)
--- NOTE | 2016-10-31 09:00 | Postpartum Progress Note ---
Note Note Day # 1 Subjective: Patient is without complaints. Ambulating, voiding. Tolerating a regular diet without nausea or vomiting. Normal lochia. Pain is well controlled with oral pain medications. Objective: VS - Last 72 Hours, by Label 10/28/16 10/28/16 10/28/16 10/28/16 20:33 21:40 22:10 23:06 Temp 99.5 98.3 97.9 Pulse 106 85 78 69 Resp 18 20 18 18 B/P (MAP) 140/88 142/97 131/84 138/103 O2 Delivery Room Air Room Air 10/29/16 10/29/16 10/29/16 10/29/16 00:12 00:39 01:20 02:10 Temp 98.2 98.7 Pulse 71 69 82 69 Resp 18 18 18 18 B/P (MAP) 136/96 122/75 160/90 140/91 10/29/16 10/29/16 10/29/16 10/29/16 03:20 05:32 06:23 07:30 Temp 98.8 Pulse 77 73 61 76 Resp 18 18 18 18 B/P (MAP) 131/76 127/87 136/85 146/111 Pulse Ox 98 O2 Delivery Room Air 10/29/16 10/29/16 10/29/16 10/29/16 07:35 07:40 07:45 07:48 Pulse 92 67 62 62 Resp 18 B/P (MAP) 140/100 143/90 130/89 140/96 Pulse Ox 98 92 98 91 O2 Delivery Room Air Room Air Room Air Room Air 10/29/16 10/29/16 10/29/16 10/29/16 07:55 07:58 08:00 08:02 Pulse 75 62 63 65 Resp 18 B/P (MAP) 121/61 135/81 123/81 Pulse Ox 100 100 88 O2 Delivery Room Air Room Air Room Air Room Air 10/29/16 10/29/16 10/29/16 10/29/16 08:05 08:05 08:10 08:12 Temp 98.7 Pulse 78 62 65 B/P (MAP) 145/89 133/73 134/77 Pulse Ox 97 91 O2 Delivery Room Air Room Air Room Air 6/21/17 6/21/17 6/21/17 6/21/17 08:15 08:25 08:30 08:35 Pulse 112 69 94 65 Resp 18 18 B/P (MAP) 130/73 118/74 108/71 121/75 Pulse Ox 98 95 96 96 O2 Delivery Room Air Room Air Room Air Room Air 10/29/16 10/29/16 10/29/16 10/29/16 08:40 08:45 08:50 09:00 Pulse 72 99 82 64 Resp 18 18 B/P (MAP) 116/75 124/80 122/78 110/61 Pulse Ox 96 96 O2 Delivery Room Air Room Air Room Air 10/29/16 10/29/16 10/29/16 10/29/16 09:15 09:20 09:30 09:35 Temp 98.6 Pulse 71 Resp 18 B/P (MAP) 118/72 O2 Delivery Non Rebreather Non Rebreather Non Rebreather O2 Flow Rate 15.00 15.00 15.00 10/29/16 10/29/16 10/29/16 10/29/16 09:45 09:50 10:05 10:20 Pulse 72 73 69 Resp 18 18 18 B/P (MAP) 132/74 128/78 139/80 O2 Delivery Room Air Room Air Room Air Room Air 10/29/16 10/29/16 10/29/16 10/29/16 10:35 10:50 11:05 11:20 Pulse 83 82 89 81 Resp 18 18 18 18 B/P (MAP) 127/77 133/84 128/78 146/85 O2 Delivery Room Air Room Air Room Air Room Air 10/29/16 10/29/16 10/29/16 10/29/16 11:35 11:50 12:38 12:51 Temp 99.3 100.4 99.4 Pulse 85 74 105 83 Resp 18 18 18 18 B/P (MAP) 144/92 135/86 132/69 138/88 O2 Delivery Room Air Room Air Room Air Room Air 10/29/16 10/29/16 10/29/16 10/29/16 13:04 13:19 13:35 13:50 Temp 99.8 99.7 Pulse 84 74 74 61 Resp 18 18 18 18 B/P (MAP) 141/83 120/73 133/78 129/83 O2 Delivery Room Air Room Air Room Air Room Air 6/21/17 10/29/16 10/30/16 10/30/16 16:32 20:00 00:10 04:04 Temp 98.7 98.2 97.8 97.6 Pulse 63 86 69 81 Resp 18 17 18 19 B/P (MAP) 119/82 130/87 120/78 129/85 Pulse Ox 100 95 97 95 O2 Delivery Room Air Room Air Room Air Room Air 10/30/16 10/30/16 10/30/16 10/31/16 08:53 11:27 20:30 00:05 Temp 96.6 98.8 96.9 97.2 Pulse 73 67 67 72 Resp 18 18 18 18 B/P (MAP) 133/83 120/79 136/85 140/92 Pulse Ox 99 96 100 97 O2 Delivery Room Air Room Air 10/31/16 06:35 Temp 96.6 Pulse 58 Resp 18 B/P (MAP) 106/70 Pulse Ox 96 Physical Exam: General - Alert and oriented, no apparent distress Abdomen - Soft, appropriately tender to palpation, non-distended, fundus firm at umbilicus Extremities - no edema, negative Bar's bilaterally no new labs Assessment: 31 y/o post- day # 1, status post spontaneous vaginal delivery. Recovering well, hemodynamically stable Mild pre-eclampsia Acute blood loss anemia on chronic anemia Plan: Routine care. Encourage breast feeding. Encourage ambulation. Ferrous sulfate supplementation. Plan for discharge today, f/u in one week for BP check with RN and 6 weeks with me in office. Vitals - Labs Vital Signs - I&O Vital Signs Date Time Temp Pulse Resp B/P (MAP) Pulse Ox O2 Delivery O2 Flow Rate FiO2 10/31/16 06:35 96.6 58 18 106/70 96 10/31/16 00:05 97.2 72 18 140/92 97 10/30/16 20:30 96.9 67 18 136/85 100 10/30/16 11:27 98.8 67 18 120/79 96 Room Air KALEN LORD MD Oct 31, 2016 09:00
[2016-10-31 10:00] VITALS: BP 116/72
== END 2016-10-31 12:30 | disposition home or self-care (01) | DRG 775 ==
LOC: LDRP 20:00
PROVIDERS: ADMIT Obstetrics & Gynecology; ATTEND Obstetrics & Gynecology
PROC: 3E0DXGC Introduction of Other Therapeutic Substance into Mouth and Pharynx, External Approach (ICD-10-PCS; 2016-10-28)
PROC: 10E0XZZ Delivery of Products of Conception, External Approach (ICD-10-PCS; principal; 2016-10-29)
DX: O48.0 Post-term pregnancy (principal); O14.04 Mild to moderate pre-eclampsia, complicating childbirth; O99.013 Anemia complicating pregnancy, third trimester; D64.9 Anemia, unspecified; Z37.0 Single live birth; Z3A.40 40 weeks gestation of pregnancy
CPT/HCPCS: 36415; 80053; 81000; 83615; 84550; 85025; 86850; 86900; 86901

== ENCOUNTER 2018-06-27 17:25 | Emergency (ER) | payer MEDICAID ==
[~2018-06-27] VITALS: Ht 162.6 cm; Wt 78.0 kg
[~2018-06-27 17:25] MED LIST changes: +DOCU-143 PO; +FERR-84 PO; +IBUP-1773 PO
[2018-06-27] MEDS ORDERED: AMOX500C2 PO (18:08)
--- NOTE | 2018-06-27 18:08 | ED EENT ---
History of Present Illness General Chief Complaint: Ear Problems Stated Complaint: EAR PAIN Nursing Triage Note: TO TRIAGE CRYING. COMPLAINS OF RIGHT SIDED EAR PAIN FOR A MONTH. ON SUDAFED FOR A SINUS INFECTION. STATES SHE IS ALSO TAKING TYLENOL BUT NOTHING IS WORKING. PT STATES SHE IS 33 WEEKS GESTATION. Source: patient Exam Limitations: no limitations History of Present Illness Date Seen by Provider: Jun 27, 2018 Time Seen by Provider: 18:06 Initial Comments Patient complains of right ear pain for the past month. She reports that she was put on Sudafed for sinus infection but has not had any relief. She reports taking Tylenol this morning but it is not working. She is 33 weeks gestation at this time. She has not been on put on any antibiotics. Allergies and Home Medications Allergies Coded Allergies: No Known Drug Allergies (Unverified , 06/30/16) Home Medications Amoxicillin 500 Mg Capsule, 500 MG PO BID Prescribed by: KEITH IQBAL on 06/27/18 1808 Ferrous Sulfate 325 Mg Tablet, 325 MG PO BID WITH MEALS Prescribed by: KALEN LORD on 10/29/16 1240 Vit W-Ca,Fe,FA(<1 mg) 1 Each Tablet, 1 EACH PO DAILY, (Reported) Past Htxopsf-Xvcoyu-Pjpqyk Hx Patient Social History Alcohol Use: Denies Use Recreational Drug Use: No Drug of Choice: THC Smoking Status: Never a Smoker Recent Foreign Travel: No Contact w/Someone Who Travel: No Recent Infectious Disease Expo: No Recent Hopitalizations: No Immunizations Up To Date Tetanus Booster (TDap): Less than 5yrs Seasonal Allergies Seasonal Allergies: No Past Medical History Surgeries: Yes (Tonsilectomy at age 7, Lumpectomy) Respiratory: No Cardiac: No Neurological: No : Yes Sexually Transmitted Disease: Yes (chlamydia, treated as per above) Genitourinary: No Gastrointestinal: No Musculoskeletal: No Endocrine: No HEENT: No Cancer: No Psychosocial: No Integumentary: No Blood Disorders: No Family Medical History Cardiovascular disease 19 MOTHER FH: celiac disease 19 MOTHER Physical Exam Vital Signs Vital Signs - First Documented 06/27/18 17:30 Temp 98.1 Pulse 96 Resp 16 B/P (MAP) 148/93 (111) Pulse Ox 97 O2 Delivery Room Air Height, Weight, BMI Height: 5'4.00" Weight: 172lbs. 0.2oz. 78.550554sq; 32.4 BMI Method:Stated Progress/Results/Core Measures Results/Orders My Orders Orders - KEITH IQBAL Amoxicillin Capsule (Polymox Capsule) (06/27/18 18:15) Acetaminophen Tablet (Tylenol Tablet) (06/27/18 18:15) Amoxicillin Capsule (Polymox Capsule) (06/27/18 18:13) Medications Given in ED Current Medications Medications Dose Ordered Sig/Kavya Route Start Time Stop Time Status Last Admin Dose Admin Acetaminophen 1,000 mg ONCE ONCE PO 06/27/18 18:15 06/27/18 18:16 DC 06/27/18 18:19 1,000 MG Amoxicillin 500 mg STK-MED ONCE PO 06/27/18 18:13 06/27/18 18:18 DC 06/27/18 18:20 500 MG Vital Signs/I&O 06/27/18 17:30 Temp 98.1 Pulse 96 Resp 16 B/P (MAP) 148/93 (111) Pulse Ox 97 O2 Delivery Room Air Blood Pressure Mean: 111 Departure Impression Primary Impression: Otitis media Disposition: 01 HOME, SELF-CARE Condition: Stable/Unchanged Departure-Patient Inst. Decision time for Depature: 18:07 Referrals: NO,LOCAL PHYSICIAN (PCP) Primary Care Physician Patient Instructions: Ear Infections (Otitis Media) (DC) Add. Discharge Instructions: Take medications as directed. Continue to use Tylenol as directed by the bottle for pain relief. Follow-up with her primary care provider within 1 week for recheck. Return back to the emergency room for worsening symptoms or concerns as needed. All discharge instructions reviewed with patient and/or family. Voiced understanding. Scripts Amoxicillin (Amoxicillin) 500 Mg Capsule 500 MG PO BID for 10 Days, #20 CAP Prov: KEITH IQBAL 06/27/18 Work/School Note: Work Release Form Date Seen in the Emergency Department: Jun 27, 2018 Return to Work: Jun 29, 2018 Restrictions: No Restrictions MELECHRISSYKEITH Jun 27, 2018 18:08
[2018-06-27] MEDS ORDERED: AMOXICILLIN 500 MG (POLYMOX) CAP PO ONE (18:13)
[2018-06-27] MEDS ORDERED: AMOXICILLIN 250 MG (POLYMOX) CAP PO SCH (18:15)
[2018-06-27] MEDS ORDERED: ACETAMINOPHEN 500 MG TAB (TYLENOL) PO ONE (18:15)
[2018-06-27 18:25] VITALS: BP 148/93
== END 2018-06-27 18:25 | disposition home or self-care (01) ==
LOC: EDUNIT# 17:25 → ER 17:26
DX: O99.89 Other specified diseases and conditions complicating pregnancy, childbirth and the puerperium (principal); H66.91 Otitis media, unspecified, right ear; Z3A.33 33 weeks gestation of pregnancy; Z90.89 Acquired absence of other organs
CPT/HCPCS: 99283

== ENCOUNTER 2018-08-06 08:15 | Inpatient (IN) | payer MEDICAID ==
[~2018-08-06] VITALS: Ht 162.6 cm; Wt 78.5 kg
[2018-08-06] VITALS (62 sets, daily range): BP systolic 102–161; BP diastolic 55–99
--- NOTE | 2018-08-06 08:10 | NUR ---
ALFREDITO MCKENZIE presented to unit via ambulatory from home, accompanied by family member , for INDUCTION OF LABOR. ALFREDITO MCKENZIE weighed, gowned, voided, and to bed. EFHM and TOCO applied, VS taken. ALFREDITO MCKENZIE oriented to bed controls, call light, TV, heat, and A/C controls.
[~2018-08-06 08:15] MED LIST changes: +AMOX500C2 PO
[2018-08-06] MEDS ORDERED: D5 LR IV SOLUTION 1,000 ML IV ONE (08:28)
[2018-08-06] MEDS ORDERED: OXYTOCIN/NORMAL SALINE 500 ML IV SCH ×2 (08:48→20:11)
[2018-08-06 08:56] LABS: BASOPHILS % (AUTO) 0 % (0-10); EOSINOPHILS % (AUTO) 0 % (0-10); HEMATOCRIT 31 % (35-52); HEMOGLOBIN 9.7 G/DL (11.5-16.0); LYMPHOCYTES # (AUTO) 2.4 X 10^3 (1.0-4.0); LYMPHOCYTES % (AUTO) 22 % (12-44); MEAN CORPUSCULAR HEMOGLOBIN 26 PG (25-34); MEAN CORPUSCULAR HGB CONC 32 G/DL (32-36); MEAN CORPUSCULAR VOLUME 81 FL (80-99); MEAN PLATELET VOLUME 10.3 FL (7.4-10.4); MONOCYTES # (AUTO) 0.7 X 10^3 (0.0-1.0); MONOCYTES % (AUTO) 6 % (0-12); NEUTROPHILS # (AUTO) 7.8 X 10^3 (1.8-7.8); NEUTROPHILS % (AUTO) 72 % (42-75); PLATELET COUNT 188 10^3/uL (130-400); RED CELL DISTRIBUTION WIDTH 13.9 % (10.0-14.5); WHITE BLOOD COUNT 10.9 10^3/uL (4.3-11.0)
[2018-08-06] MEDS ORDERED: MINERAL OIL CONCENTRATE 99.9% 15 ML UDC PO PRN (09:00)
[2018-08-06] MEDS ORDERED: OXYTOCIN/NORMAL SALINE 500 ML IV ONE (09:07)
[2018-08-06 09:10] LABS: BILIRUBIN,URINE NEGATIVE (NEGATIVE); CLARITY,URINE CLEAR; COLOR,URINE YELLOW; GLUCOSE, URINE (UA) 3+ (NEGATIVE); KETONES,URINE 2+ (NEGATIVE); LEUKOCYTE ESTERASE ,URINE 1+ (NEGATIVE); NITRITE,URINE NEGATIVE (NEGATIVE); PH,URINE 6 (5-9); PROTEIN,URINE 2+ (NEGATIVE); UROBILINOGEN,URINE NORMAL (NORMAL)
[2018-08-06 09:23] LABS: BACTERIA,URINE FEW /HPF; CALCIUM OXALATE CRYSTALS,UR FEW /LPF; RBC,URINE 0-2 /HPF
[2018-08-06] MEDS: D5 LR IV SOLUTION 1,000 ML IV SCH ×3 (09:52→18:59)
[2018-08-06] MEDS ORDERED: FLU QUADRIvalent (5+ YOA) 2018-2019 (AFLURIA) 0.5 ML IM ONE (10:15)
[2018-08-06] MEDS ORDERED: LIDOCAINE PF 2% 5 ML (XYLOCAINE) VIAL ONE (12:22)
[2018-08-06] MEDS ORDERED: BUPIVACAINE 0.25% 30 ML (SENSORCAINE) VIAL ONE (12:22)
[2018-08-06] MEDS ORDERED: fentaNYL INJECTION 100 MCG/2 ML AMP ONE (12:22)
[2018-08-06] MEDS ORDERED: SUFENTA 0.6MCG/ML BUPIVA 0.125 100 ML ONE (12:26)
--- NOTE | 2018-08-06 12:40 | NUR ---
Miles Rivero CRNA_ here for epidural placement. Procedure explained, consent reviewed and signed by anesthesia. Questions answered to patient's satisfaction. Time out taken to verify correct patient/procedure. Patient up to side of bed, assisted into sitting position. Betadine prep done x3 and sterile drape applied. Local done, see anesthesia record. Test dose given, see anesthesia record for drug and dosage. Epidural catheter secured in place. Epidural placement complete. Assisted back into bed, monitors adjusted. Epidural dosed, see anesthesia record. Epidural of Sufenta/Bupvicaine @12cc/hr stated per pump. Patient tolerated procedure well.
[2018-08-06] MEDS ORDERED: LACTATED RINGERS 1,000 ML IV SCH (14:13)
[2018-08-06] MEDS ORDERED: ONDANSETRON 4 MG/2 ML (SDV) Z0FRAN IV PRN (14:15)
[2018-08-06] MEDS ORDERED: EPIDURAL (SUFENTA 0.6MCG/ML BUPIVA 0.125%) 100 ML BAG EPI PRN (14:15)
[2018-08-06] MEDS ORDERED: diphenhydrAMINE 50 MG/ML INJ (BENADRYL) IV PRN (14:15)
[2018-08-06] MEDS ORDERED: NALOXONE 0.4 MG/ML 1 ML (NARCAN) VIAL IV PRN (14:15)
--- NOTE | 2018-08-06 19:15 | NUR ---
REPORT RECEIVED AND CARES RESUMED BY THIS NURSE.
[2018-08-06] MEDS ORDERED: MEASLES,MUMPS,RUBELLA 1 EA INJ SQ ONE (20:15)
[2018-08-06] MEDS ORDERED: BENZOCAINE/MENTHOL (DERMOPLAST) 56 ML CAN TP PRN (20:15)
[2018-08-06] MEDS ORDERED: DIBUCAINE (NUPERCAINAL) 1% OINT 30 GM TOP PRN (20:15)
[2018-08-06] MEDS ORDERED: TETANUS,DIPTH,PERTUSS P/F (BOOSTRIX) 0.5 ML VIAL IM ONE (20:15)
[2018-08-06] MEDS ORDERED: WITCH HAZEL(TUCKS) 40 EA JAR TOP PRN (20:15)
--- NOTE | 2018-08-06 20:17 | OB Labor & Delivery Record ---
Vag Delivery Note Vag Delivery Note Date of Delivery: 08/06/18 Preoperative Diagnosis: Tracy Lemus is a 30 /Para 4 /3 , Gestational Age 39 weeks for induction Postoperative Diagnosis: Same Surgeon: SRINATH VARGAS [employer] Coordinator: Arcelia Jacob MS IV Anesthesia: epidural Delivery Type: vaginal Findings: Viable female , apgars 8/9, weight 8#3oz Lacerations: none Intact placenta with 3 vessel cord. No nuchal cord, body cord or shoulder dystocia Estimated Blood Loss: 500 ml Complications: None Condition: Stable Description of Procedure: The patient is a 32 year old female who presented 30 /Para 4 /3 , Gestational Age 39 weeks for induction. She was admitted and informed consent was obtained. Her labor course was remarkable for AROM, augmentation with pitocin. She progressed to complete dilatation and began to push. She was then set up for delivery. The infant's head was delivered atraumatically in the SHEREE position. The shoulders and remainder of the 's body were then delivered without difficulty. Upon delivery, the head was held below the level of the perineum and the mouth and nares were bulb suctioned. The cord was doubly clamped and cut and the infant was handed off to the pediatric staff. An intact placenta with 3-vessel cord delivered via Shani and there was found to be minimal bleeding.~ Vigorous fundal massage was performed and the fundus was found to be firm. IV oxytocin was given. Examination of the vagina and perineum revealed no laceration. Following the delivery, sponge, instrument and needle counts were correct. Mom and baby were both in stable condition in the labor suite. Vitals - Labs Vital Signs - I&O Vital Signs Date Time Temp Pulse Resp B/P (MAP) Pulse Ox O2 Delivery O2 Flow Rate FiO2 08/06/18 18:45 90 18 143/84 (103) 100 Room Air 08/06/18 18:32 96 18 137/84 (101) 100 Room Air 08/06/18 18:16 101 18 125/82 (96) 100 Room Air 08/06/18 18:02 96 18 117/79 (92) 98 Room Air 08/06/18 17:47 100 18 120/78 (92) 98 Room Air 08/06/18 17:32 93 18 130/74 (92) 96 Room Air 08/06/18 17:16 84 18 135/63 (87) 98 Room Air 08/06/18 17:01 84 18 136/72 (93) 98 Room Air 08/06/18 16:47 83 18 128/73 (91) 97 Room Air 08/06/18 16:31 86 18 127/78 (94) 96 Room Air 08/06/18 16:16 91 18 115/82 (93) 99 Room Air 08/06/18 16:02 90 18 129/78 (95) 99 Room Air 08/06/18 15:45 110 18 132/82 (99) 99 Room Air 08/06/18 15:31 85 18 125/69 (87) 99 Room Air 08/06/18 15:15 86 18 108/55 (72) 99 Room Air 08/06/18 15:04 97.2 86 18 136/65 (88) 99 Room Air 08/06/18 14:46 91 18 118/68 (85) 99 Room Air 08/06/18 14:32 116 18 124/80 (95) 99 Room Air 08/06/18 14:20 82 18 102/58 (73) 100 Room Air 08/06/18 14:05 102 18 132/84 (100) 100 Room Air 08/06/18 13:45 100 18 126/81 (96) 99 Room Air 08/06/18 13:39 90 18 135/80 (98) 98 Room Air 08/06/18 13:36 86 18 130/75 (93) 98 Room Air 08/06/18 13:33 90 18 120/69 (86) 98 Room Air 08/06/18 13:30 83 18 114/58 (76) 96 Room Air 08/06/18 13:27 106 18 120/57 (78) 96 Room Air 08/06/18 13:24 103 18 104/59 (74) 97 Room Air 08/06/18 13:21 127 18 107/71 (83) 98 Room Air 08/06/18 13:17 113 18 136/70 (92) 96 Room Air 08/06/18 13:11 106 18 145/79 (101) 97 Room Air 08/06/18 13:09 120 18 155/87 (109) 98 Room Air 08/06/18 13:06 116 18 159/94 (115) 98 Room Air 08/06/18 13:03 113 18 161/99 (119) 98 Room Air 08/06/18 13:00 103 18 155/95 (115) 97 Room Air 08/06/18 12:57 109 18 151/81 (104) 97 Room Air 08/06/18 12:54 107 18 157/88 (111) 97 Room Air 08/06/18 12:51 111 18 156/82 (106) 99 Room Air 08/06/18 12:49 110 18 150/76 (100) 99 Room Air 08/06/18 12:45 101 18 155/85 (108) 100 Room Air 08/06/18 12:30 99.4 90 18 140/74 (96) 08/06/18 12:15 114 18 138/99 (112) 08/06/18 12:00 82 18 129/81 (97) 08/06/18 11:45 86 18 125/78 (94) 08/06/18 11:30 95 18 123/66 (85) 08/06/18 11:15 89 18 133/79 (97) 08/06/18 11:00 100 18 129/79 (96) 08/06/18 10:45 97.0 105 18 125/80 (95) 08/06/18 10:30 93 18 130/84 (99) 08/06/18 10:15 104 18 118/77 (91) 08/06/18 10:00 95 18 120/74 (89) 08/06/18 09:45 100 18 127/83 (98) 08/06/18 09:30 88 18 118/70 (86) 08/06/18 09:10 108 18 118/77 (91) 08/06/18 08:50 97.7 126 18 149/85 (106) Labs Laboratory Tests 08/06/18 08:30: Urine Color YELLOW, Urine Clarity CLEAR, Urine pH 6, Urine Specific Hye 1.025H, Urine Protein 2+H, Urine Glucose (UA) 3+H, Urine Ketones 2+H, Urine Nitrite NEGATIVE, Urine Bilirubin NEGATIVE, Urine Urobilinogen NORMAL, Urine Leukocyte Esterase 1+H, Urine RBC (Auto) 2+H, Urine RBC 0-2, Urine WBC 2-5, Urine Squamous Epithelial Cells 5-10, Urine Crystals PRESENTH, Urine Calcium Oxalate Crystals FEWH, Urine Bacteria FEWH, Urine Casts NONE, Urine Mucus NEGATIVE, Urine Culture Indicated NO 08/06/18 08:40: White Blood Count 10.9, Red Blood Count 3.81L, Hemoglobin 9.7L, Hematocrit 31L, Mean Corpuscular Volume 81, Mean Corpuscular Hemoglobin 26, Mean Corpuscular Hemoglobin Concent 32, Red Cell Distribution Width 13.9, Platelet Count 188, Mean Platelet Volume 10.3, Neutrophils (%) (Auto) 72, Lymphocytes (%) (Auto) 22 , Monocytes (%) (Auto) 6, Eosinophils (%) (Auto) 0, Basophils (%) (Auto) 0, Neutrophils # (Auto) 7.8, Lymphocytes # (Auto) 2.4, Monocytes # (Auto) 0.7, Eosinophils # (Auto) 0.0, Basophils # (Auto) 0.0 SRINATH VARGAS DO Aug 06, 2018 20:17
[2018-08-06] MEDS: ACETAMINOPHEN 500 MG TAB (TYLENOL) PO SCH (20:50)
[2018-08-06] MEDS: DOCUSATE SODIUM 100 MG (COLACE) CAP PO SCH (21:00)
--- NOTE | 2018-08-06 21:40 | NUR ---
PT AMB TO BATHROOM WITHOUT DIFFICULTY. VOIDED LARGE AMOUNT. PERICARE DONE. PT TAKEN TO ROOM AT THIS TIME BY W/CMello
[2018-08-06] MEDS: IBUPROFEN 600 MG (MOTRIN) TAB PO SCH (21:45)
[2018-08-06] MEDS ORDERED: CATHETER FLUSH 10 ML SYR IV SCH (22:00)
--- NOTE | 2018-08-06 22:45 | NUR ---
PT SITTING UP EATING CHEESEBURGER. DENIES ANY PAIN, NAUSEA OR NEEDS.
--- NOTE | 2018-08-07 01:30 | NUR ---
PT SITTING UP IN BED . DENIES ANY NEEDS OR C/O'S AT THIS TIME.
[2018-08-07 04:15] VITALS: BP 138/89
[2018-08-07] MEDS: IBUPROFEN 600 MG (MOTRIN) TAB PO SCH ×4 (04:15→22:26)
--- NOTE | 2018-08-07 04:15 | NUR ---
VSS. MOTRIN ADMINISTERED. VERY FUSSY. TO NSY AT THIS TIME SO PT CAN REST.
[2018-08-07 06:34] LABS: BASOPHILS % (AUTO) 0 % (0-10); EOSINOPHILS % (AUTO) 0 % (0-10); HEMATOCRIT 27 % (35-52); HEMOGLOBIN 8.6 G/DL (11.5-16.0); LYMPHOCYTES # (AUTO) 2.8 X 10^3 (1.0-4.0); LYMPHOCYTES % (AUTO) 16 % (12-44); MEAN CORPUSCULAR HEMOGLOBIN 25 PG (25-34); MEAN CORPUSCULAR HGB CONC 32 G/DL (32-36); MEAN CORPUSCULAR VOLUME 80 FL (80-99); MONOCYTES # (AUTO) 1.3 X 10^3 (0.0-1.0); MONOCYTES % (AUTO) 8 % (0-12); NEUTROPHILS # (AUTO) 12.8 X 10^3 (1.8-7.8); NEUTROPHILS % (AUTO) 76 % (42-75); PLATELET COUNT 182 10^3/uL (130-400); WHITE BLOOD COUNT 16.9 10^3/uL (4.3-11.0)
--- NOTE | 2018-08-07 06:39 | Anesthesia-Regional Post-Op ---
Regional Patient Condition Mental Status: Alert, Oriented x3 Circulation: Same as Pre-Op Headache: Absent Sensation: Full Recovery Motor Block: Absent Post Op Complications Complications None Follow Up Care/Instructions Patient Instructions None needed. Anesthesia/Patient Condition Patient is doing well, no complaints, stable vital signs, no apparent adverse anesthesia problems. No complications reported per nursing. D/C home per [facility] Criteria: ANGELA Garcia CRNA Aug 07, 2018 06:39
[2018-08-07 10:00] VITALS: BP 120/82
[2018-08-07] MEDS: PRENATAL VITAMIN 1 EA TAB PO SCH (10:02)
[2018-08-07] MEDS: DOCUSATE SODIUM 100 MG (COLACE) CAP PO SCH ×2 (10:02→22:26)
--- NOTE | 2018-08-07 10:19 | Postpartum Progress Note ---
Note Note Day # 1 s/p Subjective: Patient is without complaints. Ambulating, voiding. Tolerating a regular diet without nausea or vomiting. Normal lochia. Pain is well controlled with oral pain medications. Objective: Laboratory Tests Test 08/07/18 06:05 Range/Units White Blood Count 16.9 H 4.3-11.0 10^3/uL Red Blood Count 3.38 L 4.35-5.85 10^6/uL Hemoglobin 8.6 L 11.5-16.0 G/DL Hematocrit 27 L 35-52 % Mean Corpuscular Volume 80 80-99 FL Mean Corpuscular Hemoglobin 25 25-34 PG Mean Corpuscular Hemoglobin Concent 32 32-36 G/DL Red Cell Distribution Width 14.0 10.0-14.5 % Platelet Count 182 130-400 10^3/uL Mean Platelet Volume 10.0 7.4-10.4 FL Neutrophils (%) (Auto) 76 H 42-75 % Lymphocytes (%) (Auto) 16 12-44 % Monocytes (%) (Auto) 8 0-12 % Eosinophils (%) (Auto) 0 0-10 % Basophils (%) (Auto) 0 0-10 % Neutrophils # (Auto) 12.8 H 1.8-7.8 X 10^3 Lymphocytes # (Auto) 2.8 1.0-4.0 X 10^3 Monocytes # (Auto) 1.3 H 0.0-1.0 X 10^3 Eosinophils # (Auto) 0.0 0.0-0.3 10^3/uL Basophils # (Auto) 0.0 0.0-0.1 10^3/uL 08/07/18 04:15 Temp 97.5 Pulse 81 Resp 16 B/P (MAP) 138/89 (105) O2 Delivery Room Air 08/07/18 00:00 Intake Total 1090 ml Output Total 1400 ml Balance -310 ml Physical Exam: General - Alert and oriented, no apparent distress Abdomen - Soft, appropriately tender to palpation, non-distended, fundus firm at umbilicus Extremities - no edema, negative Bar's bilaterally Assessment: 1. post- day # 1, status post spontaneous vaginal delivery. Recovering well, hemodynamically stable 2. post anemia/antepartum anemia Plan: Routine care. Encourage breast feeding. Encourage ambulation. Ferrous sulfate supplementation. Plan for discharge tomorrow with Dr. Rene Vitals - Labs Vital Signs - I&O Vital Signs Date Time Temp Pulse Resp B/P (MAP) Pulse Ox O2 Delivery O2 Flow Rate FiO2 08/07/18 04:15 97.5 81 16 138/89 (105) Room Air 08/06/18 21:45 98.1 91 18 134/76 (95) Room Air 08/06/18 20:30 98.9 88 18 123/80 (94) 08/06/18 20:15 106 18 141/75 (97) Room Air 08/06/18 20:00 98.9 96 18 144/80 (101) Room Air 08/06/18 19:50 111 18 157/73 (101) 100 Room Air 08/06/18 19:35 111 18 155/94 (114) 100 Room Air 08/06/18 19:20 92 18 137/87 (104) 99 Room Air 08/06/18 19:05 83 18 152/83 (106) 99 Room Air 08/06/18 18:45 90 18 143/84 (103) 100 Room Air 08/06/18 18:32 96 18 137/84 (101) 100 Room Air 08/06/18 18:16 101 18 125/82 (96) 100 Room Air 08/06/18 18:02 96 18 117/79 (92) 98 Room Air 08/06/18 17:47 100 18 120/78 (92) 98 Room Air 08/06/18 17:32 93 18 130/74 (92) 96 Room Air 08/06/18 17:16 84 18 135/63 (87) 98 Room Air 08/06/18 17:01 84 18 136/72 (93) 98 Room Air 08/06/18 16:47 83 18 128/73 (91) 97 Room Air 08/06/18 16:31 86 18 127/78 (94) 96 Room Air 08/06/18 16:16 91 18 115/82 (93) 99 Room Air 08/06/18 16:02 90 18 129/78 (95) 99 Room Air 08/06/18 15:45 110 18 132/82 (99) 99 Room Air 08/06/18 15:31 85 18 125/69 (87) 99 Room Air 08/06/18 15:15 86 18 108/55 (72) 99 Room Air 08/06/18 15:04 97.2 86 18 136/65 (88) 99 Room Air 08/06/18 14:46 91 18 118/68 (85) 99 Room Air 08/06/18 14:32 116 18 124/80 (95) 99 Room Air 08/06/18 14:20 82 18 102/58 (73) 100 Room Air 08/06/18 14:05 102 18 132/84 (100) 100 Room Air 08/06/18 13:45 100 18 126/81 (96) 99 Room Air 08/06/18 13:39 90 18 135/80 (98) 98 Room Air 08/06/18 13:36 86 18 130/75 (93) 98 Room Air 08/06/18 13:33 90 18 120/69 (86) 98 Room Air 08/06/18 13:30 83 18 114/58 (76) 96 Room Air 08/06/18 13:27 106 18 120/57 (78) 96 Room Air 08/06/18 13:24 103 18 104/59 (74) 97 Room Air 08/06/18 13:21 127 18 107/71 (83) 98 Room Air 08/06/18 13:17 113 18 136/70 (92) 96 Room Air 08/06/18 13:11 106 18 145/79 (101) 97 Room Air 08/06/18 13:09 120 18 155/87 (109) 98 Room Air 08/06/18 13:06 116 18 159/94 (115) 98 Room Air 08/06/18 13:03 113 18 161/99 (119) 98 Room Air 08/06/18 13:00 103 18 155/95 (115) 97 Room Air 08/06/18 12:57 109 18 151/81 (104) 97 Room Air 08/06/18 12:54 107 18 157/88 (111) 97 Room Air 08/06/18 12:51 111 18 156/82 (106) 99 Room Air 08/06/18 12:49 110 18 150/76 (100) 99 Room Air 08/06/18 12:45 101 18 155/85 (108) 100 Room Air 08/06/18 12:30 99.4 90 18 140/74 (96) 3/29/19 12:15 114 18 138/99 (112) 08/06/18 12:00 82 18 129/81 (97) 08/06/18 11:45 86 18 125/78 (94) 08/06/18 11:30 95 18 123/66 (85) 08/06/18 11:15 89 18 133/79 (97) 08/06/18 11:00 100 18 129/79 (96) 08/06/18 10:45 97.0 105 18 125/80 (95) 08/06/18 10:30 93 18 130/84 (99) I & O 08/07/18 07:00 Intake Total 1090 ml Output Total 1400 ml Balance -310 ml Labs Laboratory Tests 08/07/18 06:05: White Blood Count 16.9H, Red Blood Count 3.38L, Hemoglobin 8.6L, Hematocrit 27L , Mean Corpuscular Volume 80, Mean Corpuscular Hemoglobin 25, Mean Corpuscular Hemoglobin Concent 32, Red Cell Distribution Width 14.0, Platelet Count 182, Mean Platelet Volume 10.0, Neutrophils (%) (Auto) 76H, Lymphocytes (%) (Auto) 16 , Monocytes (%) (Auto) 8, Eosinophils (%) (Auto) 0, Basophils (%) (Auto) 0, Neutrophils # (Auto) 12.8H, Lymphocytes # (Auto) 2.8, Monocytes # (Auto) 1.3H, Eosinophils # (Auto) 0.0, Basophils # (Auto) 0.0 SRINATH VARGAS DO Aug 07, 2018 10:19
[2018-08-07] MEDS ORDERED: FERR325T18 PO (10:21)
[2018-08-07] MEDS ORDERED: IBUP-844 PO (10:21)
[2018-08-07] MEDS ORDERED: ACET-77 PO (10:21)
--- NOTE | 2018-08-07 10:23 | Discharge Inst-Women's Service ---
Discharge Inst-Women's Serv Depart Medication/Instructions New, Converted or Re-Newed RX: RX on Chart Final Diagnosis vaginal delivery antepartum anemia Consults/Follow Up Additional Follow Up: Yes Activity Activity: Activity as Tolerated Driving Instructions: You May Drive NO SMOKING: NO SMOKING Nothing Inside Vagina: No Douching, No Beason, No Tampons Diet Discharge Diet: No Restrictions Symptoms to Report to : Swelling Increased, Bleeding Excessive, Pain Increased, Fever Over 101 Degrees F, Vaginal Bleeding Increase, Cramps in Feet or Legs, Vaginal Discharge Foul For Any Problems or Questions: Contact Your Physician SRINATH VARGAS DO Aug 07, 2018 10:23
[2018-08-07 13:15] VITALS: BP 132/82
[2018-08-07] MEDS: ACETAMINOPHEN 500 MG TAB (TYLENOL) PO SCH (13:18)
[2018-08-07] MEDS: FERROUS SULF 325 MG (IRON) TAB PO SCH (13:24)
--- NOTE | 2018-08-07 15:00 | NUR ---
REPORT FROM HANNA ANGULO.
[2018-08-07 17:07] VITALS: BP 126/86
--- NOTE | 2018-08-07 17:12 | NUR ---
SCHEDULED MOTRIN GIVEN PO. PT REPORTS MOTHER IN LAW SPELLED COFFEE DOWN VENT IN ROOM AND ROOM NOW SMELLS LIKE COFFEE AND THEY ARE UNABLE TO USE VENT FOR AIR. PT REQUESTING TO BE MOVED TO A DIFFERENT ROOM. PT AND INFANT MOVED TO ROOM 3311 FOR CONTINUED CARE.
--- NOTE | 2018-08-07 18:00 | NUR ---
REPORT TO SARAH ANGULO.
[2018-08-07 22:25] VITALS: BP 133/67
[2018-08-08 03:40] VITALS: BP 108/68
[2018-08-08] MEDS: IBUPROFEN 600 MG (MOTRIN) TAB PO SCH ×2 (03:42→10:56)
[2018-08-08] MEDS: ACETAMINOPHEN 500 MG TAB (TYLENOL) PO SCH ×2 (03:43→12:15)
--- NOTE | 2018-08-08 09:14 | NUR ---
PT SITTING UP IN BED, HOLDING AND BOTTLE FEEDING . NO NEEDS VOICED.
--- NOTE | 2018-08-08 10:07 | NUR ---
PT AND S/O SLEEPING, WILL RETURN AT A LATER TIME.
[2018-08-08] MEDS: DOCUSATE SODIUM 100 MG (COLACE) CAP PO SCH (10:56)
[2018-08-08] MEDS: FERROUS SULF 325 MG (IRON) TAB PO SCH (10:57)
[2018-08-08] MEDS: PRENATAL VITAMIN 1 EA TAB PO SCH (10:57)
[2018-08-08 10:58] VITALS: BP 122/82
--- NOTE | 2018-08-08 11:00 | NUR ---
PT SITTING UP ON THE SIDE OF THE BED, VS OBTAINED. INITIAL SHIFT ASSESSMENT COMPLETED; SEE INTERVENTION FOR FURTHER. NO NEEDS VOICED, WILL PLAN TO DO DISCHARGE PAPERS SHORTLY.
--- NOTE | 2018-08-08 12:08 | NUR ---
DISCHARGE PAPERS PROVIDED AND REVIEWED WITH PT. PT VERBALIZES UNDERSTANDING AND DENIES ANY NEEDS OR QUESTIONS AT THIS TIME. PAPER SIGNED. FAREED PALACIOS DELIVERED TO ROOM PER ROOM SERVICE.
[2018-08-08] MEDS ORDERED: MEASLES,MUMPS,RUBELLA 1 EA INJ ONE (14:51)
--- NOTE | 2018-08-08 15:00 | NUR ---
MMR VACCINE GIVEN INTO PT'S LEFT UPPER ARM, SQ; SEE EMAR FOR FURTHER. PT INFANT AT THIS TIME. WILL NOTIFY THIS RN WHEN READY TO LEAVE.
--- NOTE | 2018-08-08 15:20 | NUR ---
PT DISCHARGED FROM -[facility] TO PERSONAL AUTO VIA AMBULATORY IN STABLE CONDITION ACC BY THIS RN AND INFANT. S/O PULLING UP THE CAR TO MAIN HOSPITAL ENTRANCE.
== END 2018-08-08 15:20 | disposition home or self-care (01) | DRG 807 ==
LOC: LDRP 08:15
PROVIDERS: ADMIT Obstetrics & Gynecology; ATTEND Obstetrics & Gynecology
PROC: 10E0XZZ Delivery of Products of Conception, External Approach (ICD-10-PCS; principal; 2018-08-06)
PROC: 10907ZC Drainage of Amniotic Fluid, Therapeutic from Products of Conception, Via Natural or Artificial Opening (ICD-10-PCS; 2018-08-06)
DX: O99.03 Anemia complicating the puerperium (principal); D64.9 Anemia, unspecified; Z3A.39 39 weeks gestation of pregnancy; Z37.0 Single live birth
CPT/HCPCS: 36415; 81000; 85025; 86850; 86900; 86901; 87088; 90707

== ENCOUNTER → 2018-08-11 | Outpatient (CLI) | payer MEDICAID ==
[~2018-08-11] MED LIST changes: +ACET-77 PO; +FERR325T18 PO; +IBUP-844 PO
--- NOTE | 2018-08-11 15:25 | Diagnostic Imaging Report ---
PROCEDURE: US Venous Lower Ext Jhon. TECHNIQUE: Multiple real-time grayscale images were obtained over the lower extremities in various projections, bilaterally. Additional duplex Doppler and color Doppler images were also obtained. INDICATION: edema. FINDINGS: The common femoral, femoral, popliteal veins and tibial veins demonstrate normal response to compression, augmentation and Valsalva. There are no abnormal lower extremity fluid collections or masses. IMPRESSION: No evidence of deep venous thrombosis in either lower extremity. Dictated by: Dictated on workstation # [id number]
== END ==
LOC: RAD 14:41
PROVIDERS: ATTEND Obstetrics & Gynecology
DX: O12.05 Gestational edema, complicating the puerperium (principal); Z3A.00 Weeks of gestation of pregnancy not specified
CPT/HCPCS: 93970

== ENCOUNTER → 2018-08-11 | Outpatient (CLI) | payer MEDICAID | LOC: LABNPT 12:31 | PROVIDERS: ATTEND Obstetrics & Gynecology | DX: O12.05 Gestational edema, complicating the puerperium (principal); O16.5 Unspecified maternal hypertension, complicating the puerperium | CPT/HCPCS: 82570; 84156 ==

== ENCOUNTER 2020-01-16 18:16 | Emergency (ER) | payer MEDICAID ==
[~2020-01-16] VITALS: Ht 162.5 cm; Wt 65.1 kg
[~2020-01-16 18:16] MED LIST changes: -ACET-77 PO; +ACET-78 PO
[2020-01-16] MEDS ORDERED: LEVOFLOXACIN 500 MG TAB (LEVAQUIN) PO ONE (18:45)
--- NOTE | 2020-01-16 18:53 | ED General ---
General Chief Complaint: Cough/Cold/Flu Symptoms Stated Complaint: FACE SWELLING/PAIN,RT EAR DEAFNESS History of Present Illness Date Seen by Provider: Jan 16, 2020 Time Seen by Provider: 18:30 Initial Comments The patient is a 34-year-old female with a history of frequent bacterial rhinosinusitis who presents for evaluation of over 2 weeks of right sided facial pressure and sinus discomfort, persistent, consistent nasal drainage and diminished hearing in her right ear which she states feels "blocked" right now. Patient visited an urgent care 6 days ago for these symptoms at which time she was prescribed cefdinir which she has taken and states has not helped. She denies associated fevers, nausea or vomiting, headache, focal weakness, numbness, tingling, neck stiffness/pain/meningismus, vision changes, productive cough, shortness of breath or chest pain. She is alert and pleasantly and appropriately interactive and in no acute distress upon initial assessment here in the emergency department with completely appropriate vital signs. Allergies and Home Medications Allergies Coded Allergies: No Known Drug Allergies (Unverified , 06/30/16) Home Medications Acetaminophen 500 Mg Tablet, 1,000 MG PO Q8H Prescribed by: SRINATH VARGAS on 08/07/18 1021 Ferrous Sulfate 325 Mg Tablet, 325 MG PO DAILY@0800 Prescribed by: SRINATH VARGAS on 08/07/18 1021 Ibuprofen 600 Mg Tablet, 600 MG PO Q6H Prescribed by: SRINATH VARGAS on 08/07/18 1021 Patient Home Medication List Home Medication List Reviewed: Yes Review of Systems Review of Systems Constitutional: see HPI All Other Systems Reviewed Negative Unless Noted: Yes (Negative excepted noted.) Past Rkiewpt-Ahetcu-Xhiayl Hx Past Med/Social Hx: Reviewed Nursing Past Med/Soc Hx Patient Social History Alcohol Use: Denies Use Recreational Drug Use: Yes Drug of Choice: THC Smoking Status: Never a Smoker Recent Foreign Travel: No Contact w/Someone Who Travel: No Recent Hopitalizations: No Physical Abuse: No Sexual Abuse: No Mistreated: No Fear: No Immunizations Up To Date Tetanus Booster (TDap): Less than 5yrs Seasonal Allergies Seasonal Allergies: No Past Medical History Surgeries: Yes (Tonsilectomy at age 7, Lumpectomy) Respiratory: No Cardiac: No Neurological: No Sexually Transmitted Disease: Yes (chlamydia, treated as per above) Genitourinary: No Gastrointestinal: No Musculoskeletal: No Endocrine: No HEENT: No Cancer: No Psychosocial: No Integumentary: No Blood Disorders: No Family Medical History Reviewed Nursing Family Hx Cardiovascular disease 19 MOTHER FH: celiac disease 19 MOTHER Physical Exam Vital Signs Capillary Refill : Height, Weight, BMI Height: 5'4.00" Weight: 173lbs. 0.0oz. 78.668612rm; 29.7 BMI Method:Stated General Appearance: No Apparent Distress Comments This is a 34-year-old female appearing nontoxic and in no acute distress. Head is normocephalic and atraumatic. Neck is supple and nontender. Oropharynx is moist without posterior oropharyngeal erythema, tonsillar exudates or swelling or uvular deviation. Patient speaking comfortably in full sentences and speaking in a normal tone of voice. She is tolerating secretions very well. Mild nasal turbinate erythema is appreciated bilaterally on inspection of the nares. Tympanic membranes are clear bilaterally. No other ear abnormalities identified internally or externally. Lungs are clear to auscultation at all stations. There is a normal S1 and S2 without rubs or gallops and capillary refill is appropriate, less than 2 seconds globally. Abdomen is soft, nontender and nondistended. Skin is warm and dry without cyanosis, clubbing or edema. Psychiatrically, the patient doesn't straights appropriate mood and affect and is alert. Progress/Results/Core Measures Suspected Sepsis SIRS Temperature: Pulse: Respiratory Rate: Blood Pressure / Mean: Results/Orders My Orders Orders - VERNON KENNEDY MD Levofloxacin Tablet (Levaquin Tablet) (01/16/20 18:45) Vital Signs/I&O Capillary Refill : Progress Note : Time: 18:55 Progress Note 34-year-old female with frequent issues with bacterial rhinosinusitis to presents for evaluation of 2-1/2 weeks of symptoms which she states feel identical to her typical sinusitis symptoms. Has been on a course of cefdinir without improvement. We will switch her to levofloxacin and we'll also prescribe Flonase and an anti-inflammatory and will redirect the patient to follow-up with primary care at [facility] this week. Patient is agreeable with this plan of care. She understands that if she feels worse is that of better or develops other new symptoms of concern that she will need to return to the emergency department immediately for reevaluation. All questions are answered. Departure Impression Primary Impression: Acute bacterial rhinosinusitis Disposition: 01 HOME, SELF-CARE Condition: Improved Departure-Patient Inst. Referrals: ANJU CHI MD Patient Instructions: Sinusitis in Adults Add. Discharge Instructions: Follow-up very closely with Dr. Chi at [facility] clinic. Please make a call tomorrow to set up an initial appointment with him at the number provided. Take the antibiotic, 1 pill per day beginning tomorrow, until the prescription is gone. Use the Flonase as directed to reduce inflammation in your sinuses. Take the diclofenac 3 times a day with food to prevent stomach upset to reduce inflamm ation and treat pain. Return to the emergency department right away with worsening symptoms of any kind or with any other new symptoms of concern. Scripts Fluticasone Propionate (Flonase Allergy Relief) 9.9 Ml [place].susp 2 SPRAY NS DAILY, #1 EACH 2 SPRAYS PER NOSTRIL DAILY X 2 DAYS THEN 1 SPRAY DAILY Prov: VERNON KENNEDY MD 01/16/20 Diclofenac Potassium (Diclofenac Potassium) 50 Mg Tablet 50 MG PO TID for Pain, #30 TAB Prov: VERNON KENNEDY MD 01/16/20 Levofloxacin (Levofloxacin) 500 Mg Tablet 500 MG PO DAILY, #6 TAB 0 Refills Prov: VERNON KENNEDY MD 01/16/20 VERNON KNENEDY MD Jan 16, 2020 18:53
[2020-01-16] MEDS ORDERED: LEVO500T80 PO (19:00)
[2020-01-16] MEDS ORDERED: FLUT9.9S NS (19:00)
[2020-01-16] MEDS ORDERED: DICL50TA4 PO (19:00)
[2020-01-16 19:06] VITALS: BP 129/70
== END 2020-01-16 19:06 | disposition home or self-care (01) ==
LOC: EDUNIT# 18:16 → ER FS 18:18
DX: J01.80 Other acute sinusitis (principal); Z82.49 Family history of ischemic heart disease and other diseases of the circulatory system
CPT/HCPCS: 99283

== ENCOUNTER 2021-04-29 17:49 | Emergency (ER) | payer MEDICAID ==
[~2021-04-29] VITALS: Ht 162.5 cm; Wt 59.7 kg
[~2021-04-29 17:49] MED LIST changes: +CYCL10TA25 PO; -CYCL10TA9 PO; +DICL50TA4 PO; +FLUT9.9S NS; +LEVO500T81 PO
[2021-04-29] MEDS ORDERED: KETOROLAC 30 MG/ML VIAL IM STA (18:15)
--- NOTE | 2021-04-29 18:18 | ED EENT ---
History of Present Illness General Chief Complaint: Ear Problems Stated Complaint: EAR/NECK PAIN/SWOLLEN/REDDNESS Source: patient Exam Limitations: no limitations History of Present Illness Date Seen by Provider: Apr 29, 2021 Time Seen by Provider: 17:58 Initial Comments 35-year-old female with no significant past medical history coming in due to left ear pain rating down her jaw. Started within the past couple days. Went to an ER yesterday in [place] and they gave her ibuprofen and discharged her. Says the pain is continuing and so she wanted a second opinion. Denies any fever, difficulty swallowing, difficulty speaking, symptoms in her mouth at all, chest pain, shortness of breath, or any other concerns. LMP was 2 years ago as she has an IUD in place Allergies and Home Medications Allergies Coded Allergies: No Known Drug Allergies (Unverified , 06/30/16) Patient Home Medication List Home Medication List Reviewed: Yes Acetaminophen (Acetaminophen) 500 Mg Tablet, 1,000 MG PO Q8H Prescribed by: SRINATH VARGAS on 08/07/18 1021 Diclofenac Potassium (Diclofenac Potassium) 50 Mg Tablet, 50 MG PO TID Prescribed by: VERNON KENNEDY on 01/16/20 190 Ferrous Sulfate (Ferrous Sulfate) 325 Mg Tablet, 325 MG PO DAILY@0800 Prescribed by: SRINATH VARGAS on 08/07/18 1021 Fluticasone Propionate (Flonase Allergy Relief) 9.9 Ml [place].susp, 2 SPRAY NS DAILY Prescribed by: VERNON KENNEDY on 01/16/20 190 Ibuprofen (Ibu) 600 Mg Tablet, 600 MG PO Q6H Prescribed by: SRINATH VARGAS on 08/07/18 1021 Levofloxacin (Levofloxacin) 500 Mg Tablet, 500 MG PO DAILY Prescribed by: VERNON KENNEDY on 01/16/20 190 Review of Systems Review of Systems Constitutional: No chills, No fever Eyes: Denies Blurred Vision Ears: Pain Nose: no symptoms reported Mouth: no symptoms reported Throat: pain Respiratory: no symptoms reported Cardiovascular: no symptoms reported Gastrointestinal: no symptoms reported Musculoskeletal: no symptoms reported Skin: no symptoms reported Neurological: No Symptoms Reported Hematologic/Lymphatic: Swollen Glands Immunological/Allergic: no symptoms reported All Other Systems Reviewed Negative Unless Noted: Yes Past Frhioab-Vbrrsp-Yttkge Hx Patient Social History Tobacco Use?: Yes Immunizations Up To Date Tetanus Booster (TDap): Less than 5yrs Seasonal Allergies Seasonal Allergies: No Past Medical History Surgeries: Yes (Tonsilectomy at age 7, Lumpectomy) Respiratory: No Cardiac: No Neurological: No Sexually Transmitted Disease: Yes (chlamydia, treated as per above) Genitourinary: No Gastrointestinal: No Musculoskeletal: No Endocrine: No HEENT: No Cancer: No Psychosocial: No Integumentary: No Blood Disorders: No Family Medical History Cardiovascular disease 19 MOTHER FH: celiac disease 19 MOTHER Physical Exam Height, Weight, BMI Height: 5'4.00" Weight: 173lbs. 0.0oz. 78.726876lw; 24.00 BMI Method:Stated General Appearance: WD/WN, no apparent distress Eyes: bilateral eye normal inspection, bilateral eye PERRL, bilateral eye EOMI Ears: bilateral ear auricle normal, bilateral ear canal normal, bilateral ear other (TM scarring but no redness or swelling) Nose: normal inspection Mouth/Throat: normal mouth inspection, pharynx normal Neck: non-tender, full range of motion, supple, normal inspection Cardiovascular: regular rate, rhythm, no edema, no murmur Respiratory: chest non-tender, lungs clear, normal breath sounds, no respiratory distress, no accessory muscle use Gastrointestinal: normal bowel sounds, non tender, soft; No distended, No guarding, No rebound Neurologic/Psychiatric: no motor/sensory deficits, alert, normal mood/affect Skin: normal color, warm/dry Progress/Results/Core Measures Results/Orders My Orders Orders - JANET CRABTREE MD Ketorolac Injection (Toradol Injection) (04/29/21 18:15) Dexamethasone Injection (Decadron Injec (04/29/21 18:15) Progress Progress Note : Progress Note 35-year-old female with above history coming in due to ear pain and left jaw/throat pain. ABCs were intact and vitals were stable on presentation. Physical exam with some lymphadenopathy submandibular that is tender. No infection in her ears but does have some old scarring. Given the sore throat was given a shot of Decadron as well as shot of Toradol. I do not see any evidence of bacterial infection or anything more serious. I believe she is stable for discharge with outpatient follow-up. She was sent home with strict return precautions Departure Impression Primary Impression: Lymphadenopathy of head and neck Disposition: HOME, SELF-CARE Condition: Stable Departure-Patient Inst. Decision time for Depature: 18:31 Referrals: NO,LOCAL PHYSICIAN (PCP/Family) Primary Care Physician Patient Instructions: Lymphadenitis (DC) Add. Discharge Instructions: If you develop any fever then I would follow back up with your doctor quicker, otherwise take the Toradol for pain for the next 3 days. Drink plenty water and eat food with this. Do not take any ibuprofen, naproxen, or aspirin with this. You can take Tylenol with it which is acetaminophen. Scripts Ketorolac Tromethamine (Ketorolac Tromethamine) 10 Mg Tablet 10 MG PO Q8H for 3 Days, #9 TAB Prov: JANET CRABTREE MD 04/29/21 Work/School Note: Work Release Form Date Seen in the Emergency Department: Apr 29, 2021 Return to Work: May 01, 2021 Restrictions: No Restrictions JANET CRABTREE MD Apr 29, 2021 18:18
[2021-04-29] MEDS ORDERED: KETO10TA PO (18:32)
[2021-04-29 18:33] VITALS: BP 131/87
== END 2021-04-29 18:37 | disposition home or self-care (01) ==
LOC: EDUNIT# 17:49 → ER FS 17:50
DX: R59.0 Localized enlarged lymph nodes (principal)
CPT/HCPCS: 99284

== ENCOUNTER 2021-05-07 13:07 | Emergency (ER) | payer MEDICAID ==
[~2021-05-07] VITALS: Ht 160 cm; Wt 61.0 kg
[~2021-05-07 13:07] MED LIST changes: +KETO10TA PO
[2021-05-07] MEDS ORDERED: ACHD5005 PO (14:58)
[2021-05-07] MEDS ORDERED: PRD20T PO (14:58)
--- NOTE | 2021-05-07 14:59 | ED EENT ---
History of Present Illness General Chief Complaint: Ear Problems Stated Complaint: SORE THROAT,COUGH, EAR ACHE,BODY ACHE Nursing Triage Note: AMB TO ROOM WITH C/O L EAR ACHE AND ONSET OF COUGH TODAY. HAS BEEN SEEN IN [facility] ER AND TODAY HERE. EAR ACHE NOT ANY BETTER HX OF TMJ Source: patient Exam Limitations: no limitations (CALI MUNIZ APRN) History of Present Illness Date Seen by Provider: May 07, 2021 Time Seen by Provider: 14:56 Initial Comments If you would have complied I would not of had to to ER with ongoing left earache for a few weeks. She is currently on Augmentin and has 3 days left. No fevers or chills. She has a burning sensation in left side of her throat making it painful to swallow or eat. Timing/Duration: abrupt Severity: moderate Location: ear (L) Prearrival Treatment: no prearrival treatment Associated Symptoms: denies symptoms (CALI MUNIZ APRN) Allergies and Home Medications Allergies Coded Allergies: No Known Drug Allergies (Unverified , 06/30/16) Patient Home Medication List Home Medication List Reviewed: Yes (CALI MUNIZ APRN) Acetaminophen (Acetaminophen) 500 Mg Tablet, 1,000 MG PO Q8H Prescribed by: SRINATH VARGAS on 08/07/18 1021 Diclofenac Potassium (Diclofenac Potassium) 50 Mg Tablet, 50 MG PO TID Prescribed by: VERNON KENNEDY on 01/16/201899 Ferrous Sulfate (Ferrous Sulfate) 325 Mg Tablet, 325 MG PO DAILY@0800 Prescribed by: SRINATH VARGAS on 08/07/18 1021 Fluticasone Propionate (Flonase Allergy Relief) 9.9 Ml [place].susp, 2 SPRAY NS DAILY Prescribed by: VERNON KENNEDY on 01/16/20 190 Hydrocodone/Acetaminophen (Hydrocodone-Acetamin 5-325 mg) 1 Each Tablet, 1 TAB PO Q4H PRN for PAIN-MODERATE (5-7) Prescribed by: CALI MUNIZ on 05/07/21 1459 Ibuprofen (Ibu) 600 Mg Tablet, 600 MG PO Q6H Prescribed by: SRINATH VARGAS on 08/07/18 1021 Ketorolac Tromethamine (Ketorolac Tromethamine) 10 Mg Tablet, 10 MG PO Q8H Prescribed by: JANET CRABTREE on 04/29/21 1832 Levofloxacin (Levofloxacin) 500 Mg Tablet, 500 MG PO DAILY Prescribed by: VERNON KENNEDY on 01/16/20 1900 Prednisone (Prednisone) 20 Mg Tab, 40 MG PO DAILY Prescribed by: CALI MUNIZ on 05/07/21 1518 Review of Systems Review of Systems Constitutional: see HPI Eyes: No Symptoms Reported Ears: See HPI Nose: no symptoms reported Mouth: no symptoms reported Throat: no symptoms reported Respiratory: no symptoms reported Cardiovascular: no symptoms reported Musculoskeletal: no symptoms reported (CALI MUNIZ APRN) Past Lkvbzvr-Pmfrqu-Kjcizv Hx Patient Social History Tobacco Use?: No Substance use?: No Alcohol Use?: No (CALI MUNIZ APRN) Immunizations Up To Date Tetanus Booster (TDap): Less than 5yrs (CALI MUNIZ APRN) Seasonal Allergies Seasonal Allergies: No (CALI MUNIZ APRN) Past Medical History Surgeries: Yes (Tonsilectomy at age 7, Lumpectomy) Respiratory: No Cardiac: No Neurological: No Sexually Transmitted Disease: Yes (chlamydia, treated as per above) Genitourinary: No Gastrointestinal: No Musculoskeletal: No Endocrine: No HEENT: No Cancer: No Psychosocial: No Integumentary: No Blood Disorders: No (CALI MUNIZ APRN) Family Medical History Cardiovascular disease 19 MOTHER FH: celiac disease 19 MOTHER Physical Exam Vital Signs Vital Signs - First Documented 05/07/21 14:11 Temp 37.3 Pulse 100 Resp 18 B/P (MAP) 131/99 (110) Pulse Ox 99 O2 Delivery Room Air (DURGA GARZON MD) Height, Weight, BMI Height: 5'4.00" Weight: 173lbs. 0.0oz. 78.847681xy; 23.00 BMI Method:Stated General Appearance: WD/WN, no apparent distress Eyes: bilateral eye normal inspection, bilateral eye PERRL, bilateral eye EOMI Ears: left ear TM red, left ear TM bulging; bilateral ear auricle normal, bilateral ear canal normal, bilateral ear TM normal Neck: non-tender, full range of motion; No lymphadenopathy (R), No lymphadenopathy (L) Respiratory: no respiratory distress, no accessory muscle use Gastrointestinal: normal bowel sounds, non tender, soft Neurologic/Psychiatric: alert, normal mood/affect, oriented x 3 Skin: normal color, warm/dry (CALI MUNIZ APRN) Progress/Results/Core Measures Results/Orders Vital Signs/I&O 05/07/21 05/07/21 14:11 15:04 Temp 37.3 37.3 Pulse 100 100 Resp 18 18 B/P (MAP) 131/99 (110) 131/99 Pulse Ox 99 99 O2 Delivery Room Air Room Air (DURGA GARZON MD) Blood Pressure Mean: 110 Departure Impression Primary Impression: Otitis media Disposition: HOME, SELF-CARE Condition: Stable Departure-Patient Inst. Decision time for Depature: 14:57 (CALI MUNIZ APRN) Referrals: ANASTACIO HENRY MD NO,LOCAL PHYSICIAN (PCP) Primary Care Physician Patient Instructions: Ear Infection ED Add. Discharge Instructions: 1. Follow-up with Dr. Henry June 06 at 11:30 AM in [place] at their clinic. Medication as directed. Finish the antibiotics. All discharge instructions reviewed with patient and/or family. Voiced understanding. Scripts Hydrocodone/Acetaminophen (Hydrocodone-Acetamin 5-325 mg) 1 Each Tablet 1 TAB PO Q4H PRN for PAIN-MODERATE (5-7), #10 TAB Prov: CALI MUNIZ APRN 05/07/21 Prednisone (Prednisone) 20 Mg Tab 40 MG PO DAILY, #6 TAB 0 Refills Prov: CALI MUNIZ APRN 05/07/21 ATTENDING PHYSICIAN NOTE: I was physically present as attending physician in the emergency department during the care of this patient, but I was not directly involved in the decision making or delivery of care for this patient. (DURGA GARZON MD) CALI MUNIZ APRN May 07, 2021 14:59 DURGA GARZON MD May 07, 2021 18:41
[2021-05-07 15:04] VITALS: BP 131/99
== END 2021-05-07 15:04 | disposition home or self-care (01) ==
LOC: EDUNIT# 13:07 → ER 13:08
DX: H66.92 Otitis media, unspecified, left ear (principal)
CPT/HCPCS: 99281

== ENCOUNTER 2021-07-26 13:03 | Emergency (ER) | payer MEDICAID ==
[~2021-07-26] VITALS: Ht 164 cm; Wt 58.9 kg
[~2021-07-26 13:03] MED LIST changes: +ACHD5005 PO; +PRD20T PO
--- NOTE | 2021-07-26 13:37 | ED Upper Extremity ---
General Chief Complaint: Upper Extremity Stated Complaint: LT SHOULDER/NECK PAIN Nursing Triage Note: patient states yesterday she was lifting her daughter up and now has sharp stabbing pain behing her left ear when she turns her head to the left, pain radiates down her spine. patient states hx of fx collarbone that did not heal. states unable to lift left arm above head. Source: patient Exam Limitations: no limitations History of Present Illness Date Seen by Provider: Jul 26, 2021 Time Seen by Provider: 13:00 Initial Comments Patient is a 34-year-old female who presents with left upper shoulder/trapezius muscle pain worse with palpation and arm movement. Patient pain began yesterday with 10-year-old daughter on the monkey bars. Patient denies midline back pain or shoulder pain. Pain is sharp 10 out of 10 worse with neck movement and in the supine position. No medications or therapies taken prior to ED arrival Onset: yesterday Severity: moderate Method of Injury: other Modifying Factors: Improves With Other Allergies and Home Medications Allergies Coded Allergies: No Known Drug Allergies (Unverified , 06/30/16) Patient Home Medication List Home Medication List Reviewed: Yes Acetaminophen (Acetaminophen) 500 Mg Tablet, 1,000 MG PO Q8H Prescribed by: SRINATH VARGAS on 08/07/18 1021 Diclofenac Potassium (Diclofenac Potassium) 50 Mg Tablet, 50 MG PO TID Prescribed by: VERNON KENNEDY on 01/16/20 190 Ferrous Sulfate (Ferrous Sulfate) 325 Mg Tablet, 325 MG PO DAILY@0800 Prescribed by: SRINATH VARGAS on 08/07/18 1021 Fluticasone Propionate (Flonase Allergy Relief) 9.9 Ml [place].susp, 2 SPRAY NS DAILY Prescribed by: VERNON KENNEDY on 01/16/20 1900 Hydrocodone/Acetaminophen (Hydrocodone-Acetamin 5-325 mg) 1 Each Tablet, 1 TAB PO Q4H PRN for PAIN-MODERATE (5-7) Prescribed by: CALI MUNIZ on 05/07/21 1459 Ibuprofen (Ibu) 600 Mg Tablet, 600 MG PO Q6H Prescribed by: SRINATH VARGAS on 08/07/18 1021 Ketorolac Tromethamine (Ketorolac Tromethamine) 10 Mg Tablet, 10 MG PO Q8H Prescribed by: JANET CRABTREE on 04/29/21 1832 Levofloxacin (Levofloxacin) 500 Mg Tablet, 500 MG PO DAILY Prescribed by: VERNON KENNEDY on 01/16/20 190 Prednisone (Prednisone) 20 Mg Tab, 40 MG PO DAILY Prescribed by: CALI MUNIZ on 05/07/21 1458 Review of Systems Constitutional: see HPI EENTM: see HPI Respiratory: see HPI Cardiovascular: see HPI Past Uclrzqx-Agcvjp-Mrnwmk Hx Patient Social History Tobacco Use?: Yes Use of E-Cig and/or Vaping dev: No Substance use?: No Alcohol Use?: No Pt feels they are or have been: No Immunizations Up To Date Tetanus Booster (TDap): Less than 5yrs Influenza Vaccine Up-to-Date: No; Not Current First/Initial COVID19 Vaccinat: no Second COVID19 Vaccination [place]: no Third COVID19 Vaccination Date: no Seasonal Allergies Seasonal Allergies: No Past Medical History Surgeries: Yes (Tonsilectomy at age 7, Lumpectomy) Respiratory: No Cardiac: No Neurological: No Sexually Transmitted Disease: Yes (chlamydia, treated as per above) Genitourinary: No Gastrointestinal: No Musculoskeletal: No Endocrine: No HEENT: No Cancer: No Psychosocial: No Integumentary: No Blood Disorders: No Family Medical History Cardiovascular disease 19 MOTHER FH: celiac disease 19 MOTHER Physical Exam Vital Signs Vital Signs - First Documented 07/26/21 13:19 Temp 37.0 Pulse 100 Resp 16 B/P (MAP) 140/97 (111) Pulse Ox 99 O2 Delivery Room Air Capillary Refill : Less Than 3 Seconds Height, Weight, BMI Height: 5'4.00" Weight: 173lbs. 0.0oz. 78.295789bu; 21.00 BMI Method:Stated General Appearance: WD/WN, no apparent distress HEENT: PERRL/EOMI, normal ENT inspection Neck: non-tender, full range of motion, supple Cardiovascular: regular rate, rhythm Shoulder: normal inspection, non-tender Progress/Results/Core Measures Results/Orders Vital Signs/I&O 07/26/21 13:19 Temp 37.0 Pulse 100 Resp 16 B/P (MAP) 140/97 (111) Pulse Ox 99 O2 Delivery Room Air Blood Pressure Mean: 111 Departure Communication (Admissions) Producible trapezius muscle pain without midline tenderness. Radicular pain complaints. Recommendations are supportive care with watchful waiting and PCP follow-up. Patient verbalizes understanding agreement discharge instructions prior to departure. Impression Primary Impression: Trapezius muscle spasm Disposition: 01 HOME, SELF-CARE Condition: Stable Departure-Patient Inst. Decision time for Depature: 13:38 Referrals: SRINATH VARGAS DO (PCP) Primary Care Physician Patient Instructions: Muscle Spasms (DC) Add. Discharge Instructions: Your exam is consistent with trapezius muscle spasm. Please avoid heavy lifting and strenuous physical activity. Apply ice to affected area for 20 to 30 minutes every 2-3 hours for the next 2 days. Take newly prescribed medications as directed and follow-up with your PCP in 5 to 7 days for reevaluation. All discharge instructions reviewed with patient and/or family. Voiced understanding. Scripts Tramadol HCl (Tramadol HCl) 50 Mg Tablet 50 MG PO Q6H PRN for PAIN for 3 Days, #10 TAB 0 Refills Prov: YESSY FORBES DO 07/26/21 Cyclobenzaprine HCl (Cyclobenzaprine HCl) 10 Mg Tablet 10 MG PO TID, #30 TAB Prov: YESSY FORBES DO 07/26/21 Ibuprofen (Ibuprofen) 600 Mg Tablet 600 MG PO Q6H PRN for PAIN-MILD, #30 TAB Prov: YESSY FORBES DO 07/26/21 YESSY FORBES DO Jul 26, 2021 13:37
[2021-07-26] MEDS ORDERED: TRM50T PO (13:40)
[2021-07-26] MEDS ORDERED: CYCL10TA25 PO (13:40)
[2021-07-26] MEDS ORDERED: IBUP-1773 PO (13:40)
[2021-07-26 13:49] VITALS: BP 140/97
== END 2021-07-26 13:50 | disposition home or self-care (01) ==
LOC: EDUNIT# 13:03 → ER FS 13:05
DX: M62.838 Other muscle spasm (principal); Z72.0 Tobacco use
CPT/HCPCS: 99281

== ENCOUNTER 2021-08-25 23:55 | Emergency (ER) | payer MEDICAID ==
[~2021-08-25] VITALS: Ht 162 cm; Wt 61.0 kg
[~2021-08-25 23:55] MED LIST changes: +TRM50T PO
[2021-08-26 00:03] VITALS: BP 169/114
--- NOTE | 2021-08-26 00:39 | ED EENT ---
History of Present Illness General Chief Complaint: Dental Problems/Pain Stated Complaint: DENTAL PAIN Nursing Triage Note: pt presents with reports of dental pain and left ear pain since yesterday morning. Source: patient Exam Limitations: no limitations History of Present Illness Date Seen by Provider: Aug 26, 2021 Time Seen by Provider: 00:35 Initial Comments Patient is a 35-year-old female who presents with widespread dental caries and dental pain. Patient has erosions. Front upper incisors and reports pain and swelling for maxillary gums and pain rating to her left ear. No dysphonia drooling or trismus. Ibuprofen and Tylenol taken prior to ED arrival. Patient does not participate in routine dental care. No other symptoms or complaints Timing/Duration: gradual Severity: moderate Location: mouth, dental Prearrival Treatment: over the counter meds Modifying Factors: Improves With Other Associated Symptoms: other Allergies and Home Medications Allergies Coded Allergies: No Known Drug Allergies (Unverified , 06/30/16) Patient Home Medication List Home Medication List Reviewed: Yes Acetaminophen (Acetaminophen) 500 Mg Tablet, 1,000 MG PO Q8H Prescribed by: SRINATH VARGAS on 08/07/18 1021 Cyclobenzaprine HCl (Cyclobenzaprine HCl) 10 Mg Tablet, 10 MG PO TID Prescribed by: YESSY FORBES on 07/26/21 1340 Diclofenac Potassium (Diclofenac Potassium) 50 Mg Tablet, 50 MG PO TID Prescribed by: VERNON KENNEDY on 01/16/20 1900 Ferrous Sulfate (Ferrous Sulfate) 325 Mg Tablet, 325 MG PO DAILY@0800 Prescribed by: SRINATH VARGAS on 08/07/18 1021 Fluticasone Propionate (Flonase Allergy Relief) 9.9 Ml [place].susp, 2 SPRAY NS DAILY Prescribed by: VERNON KENNEDY on 01/16/20 1900 Hydrocodone/Acetaminophen (Hydrocodone-Acetamin 5-325 mg) 1 Each Tablet, 1 TAB PO Q4H PRN for PAIN-MODERATE (5-7) Prescribed by: CALI MUNIZ on 05/07/21 1459 Ibuprofen (Ibu) 600 Mg Tablet, 600 MG PO Q6H Prescribed by: SRINATH VARGAS on 08/07/18 1021 Ibuprofen (Ibuprofen) 600 Mg Tablet, 600 MG PO Q6H PRN for PAIN-MILD Prescribed by: YESSY FORBES on 07/26/21 1340 Ketorolac Tromethamine (Ketorolac Tromethamine) 10 Mg Tablet, 10 MG PO Q8H Prescribed by: JANET CRABTREE on 04/29/21 1832 Levofloxacin (Levofloxacin) 500 Mg Tablet, 500 MG PO DAILY Prescribed by: VERNON KENNEDY on 01/16/20 1900 Prednisone (Prednisone) 20 Mg Tab, 40 MG PO DAILY Prescribed by: CALI MUNIZ on 05/07/21 1458 Tramadol HCl (Tramadol HCl) 50 Mg Tablet, 50 MG PO Q6H PRN for PAIN Prescribed by: YESSY FORBES on 07/26/21 1341 Review of Systems Review of Systems Constitutional: see HPI Eyes: See HPI Ears: See HPI Nose: see HPI Mouth: see HPI Throat: see HPI Respiratory: see HPI Cardiovascular: see HPI Gastrointestinal: see HPI Past Wqffwng-Tldbwx-Fqizsr Hx Patient Social History Tobacco Use?: No Substance use?: No Alcohol Use?: No Immunizations Up To Date Tetanus Booster (TDap): Less than 5yrs First/Initial COVID19 Vaccinat: no Second COVID19 Vaccination [place]: no Third COVID19 Vaccination Date: no Seasonal Allergies Seasonal Allergies: No Past Medical History Surgeries: Yes (Tonsilectomy at age 7, Lumpectomy) Respiratory: No Cardiac: No Neurological: No Sexually Transmitted Disease: Yes (chlamydia, treated as per above) Genitourinary: No Gastrointestinal: No Musculoskeletal: No Endocrine: No HEENT: No Cancer: No Psychosocial: No Integumentary: No Blood Disorders: No Family Medical History Cardiovascular disease 19 MOTHER FH: celiac disease 19 MOTHER Physical Exam Vital Signs Vital Signs - First Documented 08/26/21 00:03 Temp 37.0 Pulse 86 Resp 18 B/P (MAP) 169/114 (132) Pulse Ox 99 O2 Delivery Room Air Height, Weight, BMI Height: 5'4.00" Weight: 173lbs. 0.0oz. 78.665311op; 23.00 BMI Method:Stated General Appearance: WD/WN Eyes: bilateral eye normal inspection, bilateral eye PERRL Ears: bilateral ear auricle normal Nose: normal inspection Mouth/Throat: dental tenderness, other (Widespread dental erosions with gingival swelling and tenderness over left upper maxillary dentition) Neck: full range of motion Respiratory: lungs clear Progress/Results/Core Measures Results/Orders Vital Signs/I&O 08/26/21 00:03 Temp 37.0 Pulse 86 Resp 18 B/P (MAP) 169/114 (132) Pulse Ox 99 O2 Delivery Room Air Blood Pressure Mean: 132 Departure Communication (Admissions) Dental pain with dental caries Impression Primary Impression: Pain due to dental caries Disposition: HOME, SELF-CARE Condition: Stable Departure-Patient Inst. Decision time for Depature: 00:39 Referrals: SRINATH VARGAS DO (PCP) Primary Care Physician NO,LOCAL PHYSICIAN (Family) Primary Care Physician Patient Instructions: Dental Pain Add. Discharge Instructions: Please fill antibiotics in the morning and take as directed. Follow-up with dentist of choice [facility]. All discharge instructions reviewed with patient and/or family. Voiced understanding. Scripts Tramadol HCl (Tramadol HCl) 50 Mg Tablet 50 MG PO Q6H PRN for PAIN for 2 Days, #5 TAB 0 Refills Prov: YESSY FORBES DO 08/26/21 Penicillin V Potassium (Penicillin V Potassium) 500 Mg Tablet 500 MG PO QID, #40 TAB Prov: YESSY FORBES DO 08/26/21 YESSY FORBES DO Aug 26, 2021 00:38
[2021-08-26] MEDS ORDERED: PENI500T PO (00:42)
[2021-08-26] MEDS ORDERED: TRM50T PO (00:42)
[2021-08-26] MEDS ORDERED: AMOXICILLIN 500 MG (POLYMOX) CAP PO STA (00:43)
== END 2021-08-26 01:00 | disposition home or self-care (01) ==
LOC: EDUNIT# 23:55 → ER FS 23:58
DX: K02.9 Dental caries, unspecified (principal)
CPT/HCPCS: 99283

== ENCOUNTER 2021-12-17 21:19 | Emergency (ER) | payer MEDICAID ==
[~2021-12-17] VITALS: Ht 165.6 cm; Wt 64.4 kg
[~2021-12-17 21:19] MED LIST changes: +PENI500T PO
[2021-12-17 22:13] VITALS: BP 140/83
[2021-12-17] MEDS ORDERED: NORG1TAB83 (22:19)
[2021-12-17] MEDS ORDERED: FLUT16SP22 (22:19)
[2021-12-17] MEDS ORDERED: AUGMENTIN 875 MG TAB (AMOXICILLIN/CLAVULANATE) PO STA (22:28)
[2021-12-17] MEDS ORDERED: HYDROcodone/APAP 5 MG/325 MG (LORTAB) TAB PO ONE (22:30)
[2021-12-17] MEDS ORDERED: PRD20T PO (22:32)
[2021-12-17] MEDS ORDERED: AMOX1TAB12 PO (22:32)
[2021-12-17] MEDS ORDERED: ACHD5005 PO (22:32)
--- NOTE | 2021-12-17 22:32 | ED EENT ---
History of Present Illness General Chief Complaint: Ear Problems Stated Complaint: EAR PAIN Nursing Triage Note: C/O BILATERAL EAR PAIN SINCE 12/10/21. SEEN BY PCP STARTED ON CEFDINIR WITHOUT IMPROVEMENT. Source: patient Exam Limitations: no limitations (JANET GRAYSON) History of Present Illness Date Seen by Provider: Dec 17, 2021 Time Seen by Provider: 22:29 Initial Comments Patient is a 36-year-old female presents ED bilateral ear pain. Ear pain over the past week and a half. She states she was diagnosed with COVID about 1 week ago. She had flulike symptoms with cough which seemed improved. She was diagnosed with ear infection was placed on cefdinir without much improvement. She states she has been dealing with ear infections for the past 3 years. She has not followed up with ENT which was recommended. She states typically she has to have a stronger antibiotic. They noted purulent drainage from ears. Reports some difficulty hearing. Pain radiate bilateral necks. She also reports sinus congestion and pressure. Denies fever, vomiting, diarrhea, sore throat, chest pain, abdominal pain or concern for . (JANET GRAYSON) Allergies and Home Medications Allergies Coded Allergies: No Known Drug Allergies (Unverified , 06/30/16) Patient Home Medication List Home Medication List Reviewed: Yes (JANET GRAYSON) Amoxicillin/Potassium Clav (Amox Tr-K Clv 875-125 mg Tab) 875 Mg-125 Mg Tablet, 1 EACH PO BID Prescribed by: HEIKE CARLISLE on 12/17/212231 Fluticasone Propionate (Fluticasone Propionate) 50 Mcg/Actuation [place].susp, (Reported) Entered as Reported by: MISSAEL AGUILAR on 12/17/212218 Last Action: New Order Hydrocodone/Acetaminophen (Hydrocodone-Acetamin 5-325 mg) 5 Mg-325 Mg Tablet, 1 TAB PO Q4H PRN for PAIN-MODERATE (5-7) Prescribed by: HEIKE CARLISLE on 12/17/212231 Norgestimate-Ethinyl Estradiol (Nal-Yg-Effcxtrz Tablet) 5VFOXH4 Lo Tablet, (Reported) Entered as Reported by: MISSAEL AGUILAR on 12/17/212218 Last Action: New Order Prednisone (Prednisone) 20 Mg Tab, 40 MG PO DAILY Prescribed by: HEIKE CARLISLE on 12/17/21 2232 Discontinued Medications Acetaminophen (Acetaminophen) 500 Mg Tablet, 1,000 MG PO Q8H Discontinued Reason: No Longer Taking Prescribed by: SRINATH VARGAS on 08/07/18 1021 Last Action: Discontinued Cyclobenzaprine HCl (Cyclobenzaprine HCl) 10 Mg Tablet, 10 MG PO TID Discontinued Reason: No Longer Taking Prescribed by: YESSY FORBES on 07/26/21 1340 Last Action: Discontinued Diclofenac Potassium (Diclofenac Potassium) 50 Mg Tablet, 50 MG PO TID Discontinued Reason: No Longer Taking Prescribed by: VERNON KENNEDY on 01/16/20 190 Last Action: Discontinued Ferrous Sulfate (Ferrous Sulfate) 325 Mg Tablet, 325 MG PO DAILY@0800 Discontinued Reason: No Longer Taking Prescribed by: SRINATH VARGAS on 08/07/18 1021 Last Action: Discontinued Fluticasone Propionate (Flonase Allergy Relief) 9.9 Ml [place].susp, 2 SPRAY NS DAILY Discontinued Reason: No Longer Taking Prescribed by: VERNON KENNEDY on 01/16/201899 Last Action: Discontinued Hydrocodone/Acetaminophen (Hydrocodone-Acetamin 5-325 mg) 1 Each Tablet, 1 TAB PO Q4H PRN for PAIN-MODERATE (5-7) Discontinued Reason: No Longer Taking Prescribed by: CALI MUNIZ on 05/07/21 1459 Last Action: Discontinued Ibuprofen (Ibu) 600 Mg Tablet, 600 MG PO Q6H Discontinued Reason: No Longer Taking Prescribed by: SRINATH VARGAS on 08/07/18 1021 Last Action: Discontinued Ibuprofen (Ibuprofen) 600 Mg Tablet, 600 MG PO Q6H PRN for PAIN-MILD Discontinued Reason: No Longer Taking Prescribed by: YESSY FORBES on 07/26/21 1340 Last Action: Discontinued Ketorolac Tromethamine (Ketorolac Tromethamine) 10 Mg Tablet, 10 MG PO Q8H Discontinued Reason: No Longer Taking Prescribed by: JANET CRABTREE on 04/29/21 1832 Last Action: Discontinued Levofloxacin (Levofloxacin) 500 Mg Tablet, 500 MG PO DAILY Discontinued Reason: No Longer Taking Prescribed by: VERNON KENNEDY on 01/16/20 190 Last Action: Discontinued Penicillin V Potassium (Penicillin V Potassium) 500 Mg Tablet, 500 MG PO QID Discontinued Reason: No Longer Taking Prescribed by: YESSY FORBES on 08/26/21 0042 Last Action: Discontinued Prednisone (Prednisone) 20 Mg Tab, 40 MG PO DAILY Discontinued Reason: No Longer Taking Prescribed by: CALI MUNIZ on 05/07/21 1458 Last Action: Discontinued Tramadol HCl (Tramadol HCl) 50 Mg Tablet, 50 MG PO Q6H PRN for PAIN Discontinued Reason: No Longer Taking Prescribed by: YESSY FORBES on 07/26/21 1341 Last Action: Discontinued Tramadol HCl (Tramadol HCl) 50 Mg Tablet, 50 MG PO Q6H PRN for PAIN Discontinued Reason: No Longer Taking Prescribed by: YESSY FORBES on 08/26/21 0043 Last Action: Discontinued Review of Systems Review of Systems Constitutional: No chills, No diaphoresis; malaise, weakness Eyes: Denies Blurred Vision, Denies Drainage Ears: Pain; Denies Tinnitus, Denies Purulent Discharge Nose: congestion Throat: denies pain, denies swelling, denies hoarse, denies previous injury Respiratory: No cough, No dyspnea on exertion Cardiovascular: No chest pain Gastrointestinal: No abdominal pain, No diarrhea, No nausea, No vomiting Musculoskeletal: No back pain, No joint pain Skin: No change in color, No change in hair/nails (JANET GRAYSON) Past Ydifzoe-Hbdcem-Pdxfzb Hx Patient Social History Tobacco Use?: No Substance use?: No Alcohol Use?: No Pt feels they are or have been: No (JANET GRAYSON) Immunizations Up To Date Tetanus Booster (TDap): Less than 5yrs First/Initial COVID19 Vaccinat: no Second COVID19 Vaccination [place]: no Third COVID19 Vaccination Date: no (JNAET GRAYSON) Seasonal Allergies Seasonal Allergies: No (JANET GRAYSON) Past Medical History Surgery/Hospitalization HX: T/A, EAR INFECTION, LUMPECTOMY Surgeries: Yes (Tonsilectomy at age 7, Lumpectomy) Respiratory: No Cardiac: No Neurological: No Sexually Transmitted Disease: Yes (chlamydia, treated as per above) Genitourinary: No Gastrointestinal: No Musculoskeletal: No Endocrine: No HEENT: No Cancer: No Psychosocial: No Integumentary: No Blood Disorders: No (JANET GRAYSON) Family Medical History Cardiovascular disease 19 MOTHER FH: celiac disease 19 MOTHER Physical Exam Vital Signs Vital Signs - First Documented 12/17/21 22:13 Temp 36.2 Pulse 73 Resp 14 B/P (MAP) 140/83 (102) Pulse Ox 100 O2 Delivery Room Air (DURGA GARZON MD) Height, Weight, BMI Height: 5'4.00" Weight: 173lbs. 0.0oz. 78.631810we; 23.00 BMI Method:Stated General Appearance: WD/WN, no apparent distress Eyes: bilateral eye normal inspection, bilateral eye PERRL, bilateral eye EOMI, bilateral eye abnormal EOM Ears: bilateral ear swelling, bilateral ear TM dull, bilateral ear TM red, bilateral ear TM bulging Nose: normal inspection, active bleeding Mouth/Throat: normal mouth inspection, pharynx normal Neck: non-tender, full range of motion, supple Cardiovascular: regular rate, rhythm, no edema, no gallop, no JVD Respiratory: chest non-tender, lungs clear, normal breath sounds, no respiratory distress, no accessory muscle use Gastrointestinal: normal bowel sounds, non tender, soft, no organomegaly Neurologic/Psychiatric: special certificate dictator II-XII nml as tested, no motor/sensory deficits, alert, normal mood/affect, oriented x 3 Skin: normal color (JANET GRAYSON) Progress/Results/Core Measures Results/Orders Medications Given in ED Current Medications Medications Dose Ordered Sig/Kavya Route Start Time Stop Time Status Last Admin Dose Admin Acetaminophen/ Hydrocodone Bitart 1 ea ONCE ONCE PO 12/17/21 22:30 12/17/21 22:31 DC 12/17/21 22:36 1 EA (DURGA GARZON MD) Vital Signs/I&O 12/17/21 12/17/21 22:13 22:36 Temp 36.2 36.2 Pulse 73 Resp 14 B/P (MAP) 140/83 (102) Pulse Ox 100 O2 Delivery Room Air (DURGA GARZON MD) Blood Pressure Mean: 102 Departure Communication (PCP) Patient with bilateral otitis media. History of chronic ear infections. Has received Augmentin in the past with improvement of symptoms. Patient was given dose of Augmentin. She does have nasal congestion and pressure. History of sinus fracture. Vital signs stable. Lung sounds clear bilateral. No abdominal tenderness. Will discharge with short burst prednisone as well as few days worth of pain medication. Recommend ENT outpatient follow-up as this appears to be ongoing chronic issue for patient. Exam otherwise benign. She states her flulike symptoms have improved. if any worsening symptoms return back to ED for further evaluation (JANET GRAYSON) Impression Primary Impression: Otitis media Disposition: 01 HOME, SELF-CARE Condition: Stable Departure-Patient Inst. Decision time for Depature: 22:30 (JANET GRAYSON) Referrals: SRINATH VARGAS DO (PCP) Primary Care Physician NO,LOCAL PHYSICIAN (Family) Primary Care Physician ANASTACIO JACINTO MD Patient Instructions: Ear Infections (Otitis Media) in Adults (DC) Scripts Hydrocodone/Acetaminophen (Hydrocodone-Acetamin 5-325 mg) 5 Mg-325 Mg Tablet 1 TAB PO Q4H PRN for PAIN-MODERATE (5-7), #8 TAB Prov: JANET GRAYSON 12/17/21 Prednisone (Prednisone) 20 Mg Tab 40 MG PO DAILY for 5 Days, #10 TAB Prov: JANET GRAYSON 12/17/21 Amoxicillin/Potassium Clav (Amox Tr-K Clv 875-125 mg Tab) 875 Mg-125 Mg Tablet 1 EACH PO BID for 10 Days, #20 TAB Prov: JANTE GRAYSON 12/17/21 ATTENDING PHYSICIAN NOTE: I was physically present as attending physician in the emergency department during the care of this patient, but I was not directly involved in the decision making or delivery of care for this patient. (DURGA GARZON MD) JANET GRAYSON Dec 17, 2021 22:32 DURGA GARZON MD Dec 18, 2021 04:37
== END 2021-12-17 22:36 | disposition home or self-care (01) ==
LOC: EDUNIT# 21:19 → ER 21:21
DX: H66.93 Otitis media, unspecified, bilateral (principal); Z86.16 Personal history of COVID-19
CPT/HCPCS: 99283

== ENCOUNTER → 2022-05-22 | Outpatient (CLI) | payer MEDICAID ==
[~2022-05-22] MED LIST changes: +AMOX1TAB12 PO; +FLUT16SP22; +LEVO-55 PO; -LEVO500T81 PO; +NORG1TAB83
--- NOTE | 2022-05-22 09:14 | Diagnostic Imaging Report ---
INDICATION: survey. TECHNIQUE: Multiple real-time grayscale images were obtained over the gravid uterus. COMPARISON: None FINDINGS: There is a single live fetus in a breech presentation. heart rate was recorded at 155 bpm. The placenta is anterior. No previa is identified. Amniotic fluid volume is normal. Cervical length is 5.4 cm. survey shows kidneys, bladder and stomach to be unremarkable. brain is unremarkable. There is a four-chamber heart. There is a three-vessel cord and cord insertion. spine imaging was suboptimal. Biometrical measurements are as follows: Biparietal 5.92 cm, age 24 weeks 2 days. Head circumference 21.78 cm, age 23 weeks 6 days. Abdominal circumference 17.60 cm, age 22 weeks 4 days. Femur length 4.10 cm, age 23 weeks 3 days. Sonographic estimate age: 23 weeks 4 days. Sonographic estimated date of delivery: 09/14/2022. Estimated Weight: 554 gm (+/- 81 gm). LMP percentile: 30%. heart rate: 155 beats per minute. number: 1 of 1. IMPRESSION: Single live IUP 23 weeks 4 days gestational age with an estimated of confinement sonographically of 09/14/2022. No complicating features are seen. Note is made that spine imaging was somewhat limited. Dictated by: Dictated on workstation # [id number]
== END ==
LOC: RAD FS 07:50
PROVIDERS: ATTEND Obstetrics & Gynecology
DX: Z34.82 Encounter for supervision of other normal pregnancy, second trimester (principal); Z3A.23 23 weeks gestation of pregnancy
CPT/HCPCS: 76805

== ENCOUNTER 2022-09-09 13:36 | Inpatient (IN) | payer MEDICAID ==
[2022-09-09] VITALS (20 sets, daily range): BP systolic 112–151; BP diastolic 72–88
[2022-09-09] MEDS ORDERED: D5 LR IV SOLUTION 1,000 ML IV ONE (15:04)
[2022-09-09 16:10] LABS: HEMATOCRIT 32 % (35-52); HEMOGLOBIN 10.1 g/dL (11.5-16.0); MEAN CORPUSCULAR HEMOGLOBIN 27 pg (25-34); MEAN CORPUSCULAR HGB CONC 32 g/dL (32-36); MEAN CORPUSCULAR VOLUME 84 fL (80-99); MEAN PLATELET VOLUME 10.3 fL (9.0-12.2); PLATELET COUNT 207 10^3/uL (130-400); WHITE BLOOD COUNT 8.5 10^3/uL (4.3-11.0)
[2022-09-09] MEDS ORDERED: D5 LR IV SOLUTION 1,000 ML IV SCH (18:30)
[2022-09-09] MEDS ORDERED: OXYTOCIN PRE-MIX DRIP 500 ML IV SCH (18:30)
[2022-09-09] MEDS ORDERED: MINERAL OIL 30 ML UDC TOP PRN (18:30)
[2022-09-09] MEDS ORDERED: fentaNYL 2 mcg/ml BUPIVA 0.125 100 ML ONE (19:25)
[2022-09-09] MEDS ORDERED: fentaNYL 2 mcg/ml BUPIVA 0.125 100 ML IV SCH (19:45)
[2022-09-09] MEDS ORDERED: ONDANSETRON 4 MG/2 ML (SDV) Z0FRAN ONE (20:54)
[2022-09-09] MEDS ORDERED: ONDANSETRON 4 MG/2 ML (SDV) Z0FRAN IV PRN (21:15)
[2022-09-09] MEDS ORDERED: CATHETER FLUSH 10 ML SYR IV SCH (22:00)
[2022-09-10] VITALS (13 sets, daily range): BP systolic 110–167; BP diastolic 60–89
[2022-09-10] MEDS: OXYTOCIN PRE-MIX DRIP 500 ML IV SCH ×2 (00:19→00:56)
[2022-09-10] MEDS ORDERED: MEASLES,MUMPS,RUBELLA 1 EA INJ SQ ONE (00:30)
[2022-09-10] MEDS ORDERED: NALOXONE 0.4 MG/ML 1 ML (NARCAN) VIAL IV PRN (00:30)
[2022-09-10] MEDS ORDERED: DIBUCAINE 1% OINTMENT 28 GM TUBE TOP PRN (00:30)
[2022-09-10] MEDS ORDERED: TETANUS,DIPTH,PERTUSS P/F (BOOSTRIX) 0.5 ML VIAL IM ONE (00:30)
[2022-09-10] MEDS ORDERED: BENZOCAINE/MENTHOL (DERMOPLAST) 56 ML CAN TP PRN (00:30)
[2022-09-10] MEDS ORDERED: WITCH HAZEL(TUCKS) 40 EA JAR TOP PRN (00:30)
--- NOTE | 2022-09-10 00:32 | OB Labor & Delivery Record ---
L&D History Date of Service Date of Service: September 10, 2022 History Expected Date of Delivery: September 10, 2022 Gestational Age in Weeks: 39 Hx : 5 Hx Para: 4 Complications Events: Routine care Operative Indications (Cesarea: N/A-Vaginal Delivery Intrapartal Events: None L&D Stage1 Stage One Onset of Labor - Date: September 10, 2022 Monitors and Tracing Monitor Mode: External Heart Rate: 155 Monitor Accelerations: Uniform Monitor Decelerations: None Hotbed Lever Operator Variability: Average (6-10) Short Term Variability: Present Presentation: Vertex Vital Signs VS - Last 72 Hours, by Label 09/09/22 09/09/22 09/09/22 09/09/22 17:50 18:19 18:39 18:57 Temp 36.6 Pulse 82 81 82 80 Resp 18 18 18 18 B/P (MAP) 151/87 (108) 135/80 (98) 125/78 (94) 137/81 (99) O2 Delivery Room Air Room Air Room Air Room Air 09/09/22 09/09/22 09/09/22 09/09/22 19:07 19:22 19:39 19:52 Pulse 98 103 117 90 Resp 18 18 18 18 B/P (MAP) 125/79 (94) 128/78 (95) 112/77 (89) 138/79 (98) O2 Delivery Room Air Room Air Room Air Room Air 09/09/22 09/09/22 09/09/22 09/09/22 20:38 21:24 21:39 21:53 Temp 36.8 Pulse 129 95 89 94 Resp 18 18 18 18 B/P (MAP) 128/88 (101) 143/76 (98) 131/81 (98) 138/82 (100) O2 Delivery Room Air Room Air Room Air Room Air 09/09/22 09/09/22 09/09/22 09/09/22 22:08 22:24 22:37 22:53 Pulse 84 104 102 96 Resp 18 18 18 18 B/P (MAP) 138/83 (101) 124/82 (96) 137/84 (101) 139/87 (104) O2 Delivery Room Air Room Air Room Air Room Air 09/09/22 23:07 Pulse 117 Resp 18 B/P (MAP) 131/74 (93) O2 Delivery Room Air Rupture of Membranes Spontaneous Ruture of Membrane: No Amniotic Membrane Rupture Time: 1245 Amniotic Membrane Fluid Desc.: Clear Vaginal Bleeding Description: Normal Show Progress/Notes Patient admitted for IOL. AROM performed followed by Pitocin augmentation. She progressed overnight to complete and + 2 station after receiving an epidural L&D Stage2 Stage Two Stage II Date: September 10, 2022 Monitors and Tracing Monitor Mode: External Heart Rate: 155 Monitor Accelerations: Uniform Monitor Decelerations: Variable Assisted Variability: Average (6-10) Short Term Variability: Present Position: Right Occiput Anterior Presentation: Vertex Cord Descript/Complications Cord Vessel Description: 3 Vessels Delivery Type Infant Delivery Method: Spontaneous Vaginal Anterior Shoulder: Left Episiotomy/Perineal Laceration Laceraction(s)/Extensions: No Condition of Delivery 1 minute Comment: 8 5 minute Comment: 9 Notes Live male weight 7lbs 12 oz. Condition of Infant Condition of Infant: Living Exam: No Observed Abnormalities Resuscitation Resuscitation: N/A - Spontaneous Resp L&D Stage3 Stage Three Stage III Date: September 10, 2022 Pictocin Pitocin Administration mu/min: 10 Pitocin ml/hr: 10 Pitocin Administration Comment: 30 mu wide open after delivery of placenta Placenta Delivery Placenta Delivery: Spontaneous Delivery Summary Summary Estimated blood loss (mL): 250 Attending at delivery: Anastacio Vanessa DO Condition of Delivery Examined: Cervix Examined, Uterus Explored Post Hemorrhage: No Condition of Mother stable Condition of Infant (s) stable ANASTACIO VANESSA DO September 10, 2022 00:32
--- NOTE | 2022-09-10 00:33 | History & Physical-OB ---
OB - Chief Complaint & HPI Date/Time Date of Admission: Date of Admission: September 09, 2022 at 18:18 Date seen by a Provider: September 10, 2022 Time Seen by a Provider: 07:15 Chief Complaint/History Hx : 5 Hx Para: 4 Expected Date of Delivery: September 10, 2022 Gestational Age in Weeks: 39 Admission Nurse Assessment Rev: Yes History of Labs GBS neg Allergies and Home Medications Allergies Coded Allergies: No Known Drug Allergies (Unverified , 06/30/16) Patient Home Medication List Home Medication List Reviewed: Yes Amoxicillin/Potassium Clav (Amox Tr-K Clv 875-125 mg Tab) 875 Mg-125 Mg Tablet, 1 EACH PO BID Prescribed by: HEIKE CARLISLE on 12/17/212231 Fluticasone Propionate (Fluticasone Propionate) 50 Mcg/Actuation [place].susp, (Reported) Entered as Reported by: MISSAEL AGUILAR on 12/17/212218 Hydrocodone/Acetaminophen (Hydrocodone-Acetamin 5-325 mg) 5 Mg-325 Mg Tablet, 1 TAB PO Q4H PRN for PAIN-MODERATE (5-7) Prescribed by: HEIKE CARLISLE on 12/17/212231 Norgestimate-Ethinyl Estradiol (Hco-Td-Vgcoogll Tablet) 5KFYTG7 Lo Tablet, (Reported) Entered as Reported by: MISSAEL AGUILAR on 12/17/212218 Prednisone (Prednisone) 20 Mg Tab, 40 MG PO DAILY Prescribed by: HEIKE CARLISLE on 12/17/212231 OB - History Hx of Present Care: Yes Ultrasounds: Normal mid trimester US Obstetrical Complications: None Medical Complications: None Obstetrical History Hx : 5 Hx Para: 4 Patient Past Medical History see above Immunizations First/Initial COVID19 Vaccine: no Second COVID19 Vaccination: no Third COVID19 Vaccination Date: no Tetanus Booster (TDap): Less than 5yrs OB - Admission Exam Physical Exam Vitals: Vital Signs 09/09/22 09/09/22 21:24 23:07 Temp 36.8 Pulse 117 Resp 18 B/P (MAP) 131/74 (93) O2 Delivery Room Air HEENT: NCAT Heart: Rhythm Normal Lungs: Clear Abdomen: Gravid Extremities: Normal Reflexes: Normal Cervical Dilatation: 2cm Effacement: 75% Station: -1 Membranes: Intact Heart Rate: 130's Accelerations: Accelerations Present Decelerations: No Decelerations Short Term Variability: Present Material Worker Variability: Average (6-25) Contractions on Admission: 6-10 Minutes Apart Intensity: Mild Earl Scoring Tool (Modified) Dilation (cm): 1-2cm (1) Effacement (%): 51-79% (2) Descent/Station: -1,0 (2) Cervix Consistency: Soft (2) Cervix Position: Anterior (2) Add 1 point for: Each previous vaginal delivery (1) Earl Score: 13 Labs Laboratory Tests Test 09/09/22 09:17 Range/Units White Blood Count 8.5 4.3-11.0 10^3/uL Red Blood Count 3.80 3.80-5.11 10^6/uL Hemoglobin 10.1 L 11.5-16.0 g/dL Hematocrit 32 L 35-52 % Mean Corpuscular Volume 84 80-99 fL Mean Corpuscular Hemoglobin 27 25-34 pg Mean Corpuscular Hemoglobin Concent 32 32-36 g/dL Red Cell Distribution Width 13.3 10.0-14.5 % Platelet Count 207 130-400 10^3/uL Mean Platelet Volume 10.3 9.0-12.2 fL OB - Assessment/Plan/Diagnosis Assessment Assessment: induction of labor Admission Dx 36 yo @ 39 weeks GBS neg Admission Status: Inpatient Order (span 2 midnights) Reason for Inpatient Admission: IOL at 39 weeks Plan Plan: Induction Induction Method: ANASTACIO DUBOSE DO September 10, 2022 00:33
[2022-09-10] MEDS: IBUPROFEN 600 MG (MOTRIN) TAB PO SCH ×4 (01:41→20:48)
[2022-09-10] MEDS: ACETAMINOPHEN 500 MG TAB (TYLENOL) PO SCH ×4 (01:41→20:49)
[2022-09-10] MEDS ORDERED: CATHETER FLUSH 10 ML SYR IV SCH (06:00)
[2022-09-10] MEDS: FERROUS SULF 325 MG (IRON) TAB PO SCH (07:50)
[2022-09-10] MEDS: PRENATAL VITAMIN 1 EA TAB PO SCH (07:50)
[2022-09-10] MEDS: DOCUSATE SODIUM 100 MG (COLACE) CAP PO SCH ×2 (07:50→20:48)
--- NOTE | 2022-09-10 11:44 | Anesthesia-Regional Post-Op ---
Regional Patient Condition Mental Status: Alert, Oriented x3 Circulation: Same as Pre-Op Headache: Absent Sensation: Full Recovery Motor Block: Absent Post Op Complications Complications None Follow Up Care/Instructions Patient Instructions None needed. Anesthesia/Patient Condition Patient is doing well, no complaints, stable vital signs, no apparent adverse anesthesia problems. No complications reported per nursing. LITTLE SINGH CRNA September 10, 2022 11:44
[2022-09-11 00:43] VITALS: BP 128/73
[2022-09-11] MEDS: ACETAMINOPHEN 500 MG TAB (TYLENOL) PO SCH ×2 (00:56→08:27)
[2022-09-11] MEDS: IBUPROFEN 600 MG (MOTRIN) TAB PO SCH ×2 (03:10→08:27)
--- NOTE | 2022-09-11 05:58 | Postpartum Progress Note ---
CELESTINA PALMER 09/11/22 0558: Note Note Day # 1 Subjective: Patient is without complaints. Ambulating, voiding. Tolerating a regular diet without nausea or vomiting. Normal lochia. Pain is well controlled with oral pain medications. Objective: Physical Exam: General - Alert and oriented, no apparent distress Cardio - RRR Pulm - CTAB Abdomen - Soft, appropriately tender to palpation, non-distended, fundus firm at umbilicus Extremities - no edema, negative Bar's bilaterally Assessment: Post- day # 1, status post vaginal delivery. Recovering well, hemodynamically stable Acute on chronic anemia Reactive leukocytosis Plan: Routine care. Encourage breast feeding. Encourage ambulation. Ferrous sulfate supplementation. Plan for discharge 09/11/2022 Vitals - Labs Vital Signs - I&O Vital Signs Date Time Temp Pulse Resp B/P (MAP) Pulse Ox O2 Delivery O2 Flow Rate FiO2 09/11/22 00:43 36.4 74 20 128/73 (91) 100 Room Air 09/10/22 20:45 36.4 87 18 139/89 (106) 100 Room Air 09/10/22 16:05 37.0 73 20 131/75 (93) 98 Room Air 09/10/22 14:05 37.3 79 18 128/76 (93) 99 Room Air 09/10/22 07:45 37.1 84 16 110/69 (83) 98 Room Air 09/10/22 07:45 37.1 84 18 110/69 (83) 98 Room Air 09/10/22 06:55 36.7 91 18 125/75 (92) 98 Room Air ANASTACIO VANESSA DO 09/11/22 0723: Note Note Verification and Attestation of Medical Student E/M Service A medical student performed and documented this service in my presence. I reviewed and verified all information documented by the medical student and made modifications to such information, when appropriate. I personally performed the physical exam and medical decision making. Anastacio Vanessa September 11, 2022,07:23 CELESTINA PALMER September 11, 2022 05:58 ANASTACIO VANESSA DO September 11, 2022 07:23
[2022-09-11 06:06] VITALS: BP 115/55
[2022-09-11 06:20] LABS: BASOPHILS % (AUTO) 0 % (0-10); EOSINOPHILS # (AUTO) 0.1 10^3/uL (0.0-0.3); EOSINOPHILS % (AUTO) 1 % (0-10); HEMATOCRIT 28 % (35-52); LYMPHOCYTES # (AUTO) 2.7 10^3/uL (1.0-4.0); LYMPHOCYTES % (AUTO) 15 % (12-44); MEAN CORPUSCULAR HEMOGLOBIN 27 pg (25-34); MEAN CORPUSCULAR HGB CONC 32 g/dL (32-36); MEAN CORPUSCULAR VOLUME 83 fL (80-99); MEAN PLATELET VOLUME 10.4 fL (9.0-12.2); MONOCYTES # (AUTO) 0.9 10^3/uL (0.0-1.0); MONOCYTES % (AUTO) 5 % (0-12); NEUTROPHILS # (AUTO) 14.7 10^3/uL (1.8-7.8); NEUTROPHILS % (AUTO) 79 % (42-75); PLATELET COUNT 182 10^3/uL (130-400); WHITE BLOOD COUNT 18.5 10^3/uL (4.3-11.0)
[2022-09-11 08:25] VITALS: BP 114/61
[2022-09-11] MEDS: FERROUS SULF 325 MG (IRON) TAB PO SCH (08:27)
[2022-09-11] MEDS: PRENATAL VITAMIN 1 EA TAB PO SCH (08:27)
[2022-09-11] MEDS: DOCUSATE SODIUM 100 MG (COLACE) CAP PO SCH (08:27)
--- NOTE | 2022-09-11 10:28 | Discharge Inst-Women's Service ---
Discharge Inst-Women's Serv Depart Medication/Instructions New, Converted or Re-Newed RX: Transmitted to Pharmacy Final Diagnosis PPD 1 NVD Problems Reviewed?: Yes Consults/Follow Up Additional Follow Up: Yes Orders/Referrals Dr. Vanessa in 6 weeks Activity Activity: Activity as Tolerated Driving Instructions: No Driving for 1 Week NO SMOKING: NO SMOKING Nothing Inside Vagina: No Douching, No [place], No Tampons Diet Discharge Diet: No Restrictions Symptoms to Report to : Bleeding Excessive, Pain Increased, Fever Over 101 Degrees F, Vaginal Bleeding Increase, Questions/Concerns For Any Problems or Questions: Contact Your Physician ANASTACIO VANESSA DO September 11, 2022 10:28
[2022-09-11] MEDS ORDERED: FERR325T24 PO (10:30)
[2022-09-11] MEDS ORDERED: IBUP-844 PO (10:30)
[2022-09-11] MEDS ORDERED: ACET-93 PO (10:30)
[2022-09-11] MEDS ORDERED: BENZ78AE5 TP (10:30)
== END 2022-09-11 15:20 | disposition home or self-care (01) | DRG 807 ==
LOC: WSo 13:36 → LDRP 13:36 → WSo 18:17 → LDRP 18:18
PROVIDERS: ADMIT Obstetrics & Gynecology; ATTEND Obstetrics & Gynecology
PROC: 10907ZC Drainage of Amniotic Fluid, Therapeutic from Products of Conception, Via Natural or Artificial Opening (ICD-10-PCS; 2022-09-09)
PROC: 10E0XZZ Delivery of Products of Conception, External Approach (ICD-10-PCS; principal; 2022-09-10)
DX: O99.02 Anemia complicating childbirth (principal); Z37.0 Single live birth; O90.89 Other complications of the puerperium, not elsewhere classified; D72.828 Other elevated white blood cell count; Z3A.39 39 weeks gestation of pregnancy; Z28.310 Unvaccinated for COVID-19; Z28.9 Immunization not carried out for unspecified reason
CPT/HCPCS: 36415; 85025; 85027; 86850; 86900; 86901